=== PATIENT | female | born 1940 | race Caucasian/White ===

== ENCOUNTER 2021-07-25 21:16 | Outpatient (REF) | payer MEDICARE, SELFPAY ==
[2021-07-27 18:27] LABS: COVID-19 RT-PCR Result Not Detected ((See Note))
== END 2021-07-25 21:17 | disposition home or self-care (01) ==
LOC: LBN 21:16
PROVIDERS: PCP Family Medicine; Visit Provider Family Medicine
DX: Z20.822 Contact with and (suspected) exposure to COVID-19 (principal)
CPT/HCPCS: U0003

== ENCOUNTER 2021-08-02 01:42 | Outpatient (REF) | payer MEDICARE, SELFPAY ==
[2021-08-02 02:02] LABS: Bilirubin Negative (Negative); Blood Negative (Negative); Clarity Sl Cloudy (Clear); Glucose Negative (Negative); Ketones Negative (Negative); Leukocyte Esterase Negative (Negative); Nitrite Negative (Negative); Specific Gravity 1.025 (1.005-1.025); Urobilinogen 0.2 EU/dL (Up TO 0.2); pH 5.5 (5-8)
[2021-08-02 12:41] LABS: Abs Immature Grans 0.03 10^3/uL (0.0-0.06); Absolute Basophil Count 0.08 10^3/uL (0.0-0.2); Absolute Eosinophil Count 0.16 10^3/uL (0.0-0.7); Absolute Lymphocyte Count 1.58 10^3/uL (1.2-3.4); Absolute Monocyte Count 0.71 10^3/uL (0.1-0.8); Absolute Neutrophil Count 5.61 10^3/uL (1.2-6.7); HCT 37.7 % (36.0-46.0); HGB 11.4 g/dL (11.2-15.7); Immature Grans % 0.4; Lymphocytes % 19.3; MCH 27.1 pg (27.0-33.0); MCHC 30.2 % (32.0-36.0); MCV 89.8 fL (80-95); MPV 8.6 fL (8.0-11.0); Monocytes % 8.7; Neutrophils % 68.6; Nucleated RBC 0 %; Platelet Count 455 10^3/uL (130-400); RDW 15.2 % (11.7-14.6); RDW-SD 50.4 fL; WBC 8.17 10^3/uL (4.4-10.8)
[2021-08-02 13:53] LABS: Anion Gap 5.8 mmol/L (3-11); BUN 16 mg/dL (7-18); CO2 31.2 mmol/L (21.0-32.0); CREATININE 0.8 mg/dL (0.55-1.02); Calcium 8.9 mg/dL (8.5-10.1); Chloride 108 mmol/L (98-107); Glucose 113 mg/dL (74-106); Potassium 4.2 mmol/L (3.5-5.1); Sodium 145 mmol/L (136-145)
== END 2021-08-02 01:43 | disposition home or self-care (01) ==
LOC: LBN 01:42
PROVIDERS: PCP Family Medicine; Visit Provider Family Medicine
DX: N39.0 Urinary tract infection, site not specified; K21.9 Gastro-esophageal reflux disease without esophagitis; M16.0 Bilateral primary osteoarthritis of hip; M54.5 Low back pain
CPT/HCPCS: 80048; 81003; 85025; 87086

== ENCOUNTER 2021-09-07 16:14 | Outpatient (REF) | payer MEDICARE, SELFPAY ==
[2021-09-07 15:10] LABS: Abs Immature Grans 0.03 10^3/uL (0.0-0.06); Absolute Basophil Count 0.06 10^3/uL (0.0-0.2); Absolute Eosinophil Count 0.01 10^3/uL (0.0-0.7); Absolute Lymphocyte Count 1.32 10^3/uL (1.2-3.4); Absolute Monocyte Count 0.65 10^3/uL (0.1-0.8); Absolute Neutrophil Count 8.46 10^3/uL (1.2-6.7); Basophils % 0.6; Eosinophils % 0.1; HCT 39.4 % (36.0-46.0); HGB 12.2 g/dL (11.2-15.7); Immature Grans % 0.3; Lymphocytes % 12.5; MCH 26.6 pg (27.0-33.0); MCV 85.8 fL (80-95); MPV 9.4 fL (8.0-11.0); Monocytes % 6.2; Neutrophils % 80.3; Nucleated RBC 0 %; Platelet Count 446 10^3/uL (130-400); RBC 4.59 10^6/uL (3.93-5.22); RDW 15.2 % (11.7-14.6); RDW-SD 47.7 fL; WBC 10.53 10^3/uL (4.4-10.8)
[2021-09-07 15:43] LABS: ALT 16 U/L (14-59); AST 15 U/L (15-37); Albumin 3.4 g/dL (3.4-5.0); Alkaline Phosphatase 112 U/L (46-116); Anion Gap 10.8 mmol/L (3-11); BUN 11 mg/dL (7-18); Bilirubin, Total 0.5 mg/dL (0.2-1.0); CO2 27.2 mmol/L (21.0-32.0); CREATININE 0.7 mg/dL (0.55-1.02); Calcium 9.1 mg/dL (8.5-10.1); Chloride 104 mmol/L (98-107); FREE T4 1.43 ng/dL (0.76-1.46); Glucose 121 mg/dL (74-106); Potassium 3.8 mmol/L (3.5-5.1); Sodium 142 mmol/L (136-145); TSH (W/Ref FT4) 0.85 uIU/mL (0.36-3.74); Total Protein 6.3 g/dL (6.4-8.2)
[2021-09-07 15:44] LABS: Bilirubin Negative (Negative); Blood Negative (Negative); Clarity Sl Cloudy (Clear); Glucose Negative (Negative); Ketones 40 mg/dL (Negative); Leukocyte Esterase Negative (Negative); Nitrite Negative (Negative); Urobilinogen 0.2 EU/dL (Up TO 0.2)
== END 2021-09-07 16:15 | disposition home or self-care (01) ==
LOC: LBN 16:14
PROVIDERS: PCP Family Medicine; Visit Provider Nurse Practitioner Family
DX: M54.59 Other low back pain (principal); N39.0 Urinary tract infection, site not specified
CPT/HCPCS: 80053; 81003; 84439; 84443; 85025

== ENCOUNTER 2021-10-20 10:19 | Outpatient (REF) | payer MEDICARE, SELFPAY ==
[2021-10-20 12:33] LABS: Bilirubin Negative (Negative); Blood Negative (Negative); Clarity Clear (Clear); Glucose Negative (Negative); Ketones Negative (Negative); Leukocyte Esterase Negative (Negative); Nitrite Negative (Negative); Specific Gravity >= 1.030 (1.005-1.025); Urobilinogen 0.2 EU/dL (Up TO 0.2); pH 6.5 (5-8)
== END 2021-10-20 10:20 | disposition home or self-care (01) ==
LOC: LBN 10:19
PROVIDERS: PCP Family Medicine; Visit Provider Nurse Practitioner Family
DX: R35.0 Frequency of micturition (principal)
CPT/HCPCS: 81003

== ENCOUNTER 2021-11-07 16:18 | Outpatient (REF) | payer MEDICARE, SELFPAY ==
[2021-11-07 17:39] LABS: Abs Immature Grans 0.02 10^3/uL (0.0-0.06); Absolute Basophil Count 0.07 10^3/uL (0.0-0.2); Absolute Lymphocyte Count 1.97 10^3/uL (1.2-3.4); Absolute Monocyte Count 0.61 10^3/uL (0.1-0.8); Absolute Neutrophil Count 5.66 10^3/uL (1.2-6.7); Basophils % 0.8; Eosinophils % 2.3; HCT 38.8 % (36.0-46.0); HGB 11.9 g/dL (11.2-15.7); Immature Grans % 0.2; Lymphocytes % 23.1; MCH 25.6 pg (27.0-33.0); MCHC 30.7 % (32.0-36.0); MCV 83.6 fL (80-95); MPV 9.3 fL (8.0-11.0); Monocytes % 7.2; Neutrophils % 66.4; Nucleated RBC 0 %; Platelet Count 344 10^3/uL (130-400); RBC 4.64 10^6/uL (3.93-5.22); RDW 15.9 % (11.7-14.6); RDW-SD 48.5 fL; WBC 8.53 10^3/uL (4.4-10.8)
[2021-11-07 17:41] LABS: Anion Gap 7.9 mmol/L (3-11); BUN 15 mg/dL (7-18); CO2 28.1 mmol/L (21.0-32.0); CREATININE 0.8 mg/dL (0.55-1.02); Calcium 8.6 mg/dL (8.5-10.1); Chloride 104 mmol/L (98-107); Glucose 122 mg/dL (74-106); Potassium 3.9 mmol/L (3.5-5.1); Sodium 140 mmol/L (136-145)
== END 2021-11-07 16:19 | disposition home or self-care (01) ==
LOC: LBN 16:18
PROVIDERS: PCP Family Medicine; Visit Provider Family Medicine
DX: E87.8 Other disorders of electrolyte and fluid balance, not elsewhere classified (principal)
CPT/HCPCS: 80048; 85025

== ENCOUNTER 2022-01-24 16:27 | Outpatient (REF) | payer MEDICARE, SELFPAY ==
[2022-01-24 18:25] LABS: Bilirubin Negative (Negative); Blood Negative (Negative); Clarity Clear (Clear); Glucose Negative (Negative); Ketones Negative (Negative); Leukocyte Esterase Negative (Negative); Nitrite Negative (Negative); Urobilinogen 0.2 EU/dL (Up TO 0.2); pH 7.5 (5-8)
== END 2022-01-24 16:28 | disposition home or self-care (01) ==
LOC: LBN 16:27
PROVIDERS: PCP Family Medicine; Visit Provider Nurse Practitioner Family
DX: R35.0 Frequency of micturition (principal); R30.9 Painful micturition, unspecified; R39.15 Urgency of urination
CPT/HCPCS: 81003; 87086

== ENCOUNTER 2022-02-08 13:00 | Outpatient (REF) | payer MEDICARE, SELFPAY ==
[2022-02-09 00:52] LABS: Abs Immature Grans 0.02 10^3/uL (0.0-0.06); Absolute Basophil Count 0.06 10^3/uL (0.0-0.2); Absolute Eosinophil Count 0.22 10^3/uL (0.0-0.7); Absolute Lymphocyte Count 2.38 10^3/uL (1.2-3.4); Absolute Monocyte Count 0.65 10^3/uL (0.1-0.8); Absolute Neutrophil Count 4.48 10^3/uL (1.2-6.7); Basophils % 0.8; Eosinophils % 2.8; HGB 10.5 g/dL (11.2-15.7); Immature Grans % 0.3; Lymphocytes % 30.5; MCH 25.2 pg (27.0-33.0); MCV 84.1 fL (80-95); MPV 9.3 fL (8.0-11.0); Monocytes % 8.3; Neutrophils % 57.3; Nucleated RBC 0 %; Platelet Count 330 10^3/uL (130-400); RBC 4.16 10^6/uL (3.93-5.22); RDW 16.7 % (11.7-14.6); RDW-SD 51.6 fL; WBC 7.81 10^3/uL (4.4-10.8)
[2022-02-09 00:54] LABS: ALT 96 U/L (14-59); AST 52 U/L (15-37); Albumin 3.2 g/dL (3.4-5.0); Alkaline Phosphatase 219 U/L (46-116); Anion Gap 6.1 mmol/L (3-11); BUN 15 mg/dL (7-18); Bilirubin, Total 0.3 mg/dL (0.2-1.0); CO2 28.9 mmol/L (21.0-32.0); CREATININE 0.7 mg/dL (0.55-1.02); Calcium 8.5 mg/dL (8.5-10.1); Chloride 107 mmol/L (98-107); Glucose 104 mg/dL (74-106); Potassium 3.9 mmol/L (3.5-5.1); Sodium 142 mmol/L (136-145); Total Protein 6.1 g/dL (6.4-8.2)
[2022-02-09 01:10] LABS: Hemoglobin A1C 5.7 % (<5.7)
== END 2022-02-08 13:01 | disposition home or self-care (01) ==
LOC: LBN 13:00
PROVIDERS: PCP Family Medicine; Visit Provider Nurse Practitioner Family
DX: M16.0 Bilateral primary osteoarthritis of hip (principal); R35.0 Frequency of micturition
CPT/HCPCS: 80053; 83036; 85025

== ENCOUNTER 2022-03-08 18:45 | Outpatient (REF) | payer MEDICARE, BC, SELFPAY ==
[2022-03-08 13:44] LABS: Abs Immature Grans 0.01 10^3/uL (0.0-0.06); Absolute Basophil Count 0.05 10^3/uL (0.0-0.2); Absolute Eosinophil Count 0.22 10^3/uL (0.0-0.7); Absolute Lymphocyte Count 1.79 10^3/uL (1.2-3.4); Absolute Monocyte Count 0.52 10^3/uL (0.1-0.8); Absolute Neutrophil Count 4.95 10^3/uL (1.2-6.7); Basophils % 0.7; Eosinophils % 2.9; HCT 38.4 % (36.0-46.0); HGB 11.5 g/dL (11.2-15.7); Immature Grans % 0.1; Lymphocytes % 23.7; MCH 25.4 pg (27.0-33.0); MCHC 29.9 % (32.0-36.0); MCV 85 fL (80-95); MPV 9.1 fL (8.0-11.0); Monocytes % 6.9; Neutrophils % 65.7; Platelet Count 283 10^3/uL (130-400); RBC 4.53 10^6/uL (3.93-5.22); RDW-SD 49.5 fL; WBC 7.54 10^3/uL (4.4-10.8)
[2022-03-08 14:06] LABS: ALT 57 U/L (14-59); AST 37 U/L (15-37); Albumin 3.3 g/dL (3.4-5.0); Alkaline Phosphatase 166 U/L (46-116); BUN 19 mg/dL (7-18); Bilirubin, Total 0.3 mg/dL (0.2-1.0); CREATININE 0.7 mg/dL (0.55-1.02); Calcium 8.6 mg/dL (8.5-10.1); Chloride 104 mmol/L (98-107); Ferritin 12 ng/mL (8-252); Glucose 126 mg/dL (74-106); Potassium 4.3 mmol/L (3.5-5.1); Sodium 140 mmol/L (136-145); Total Protein 6.3 g/dL (6.4-8.2)
== END 2022-03-08 18:46 | disposition home or self-care (01) ==
LOC: LBN 18:45
PROVIDERS: PCP Family Medicine; Visit Provider Family Medicine
DX: D50.9 Iron deficiency anemia, unspecified (principal); R74.01 Elevation of levels of liver transaminase levels
CPT/HCPCS: 80053; 82728; 85025

== ENCOUNTER 2022-03-25 08:59 | Emergency (ER) | payer MEDICARE, BC, SELFPAY ==
--- NOTE | 2022-03-25 08:45 | RT.EKG_ITS ---
APPROVED REPORT Exam: Resting ECG Reason for Exam: dizziness Patient Location: E HR:63 bpm ECG Measurements Heart Rate 63 AXIS NJ 202 P 45 QRSd 89 QRS 28 QT 392 T 17 QTc 402 Conclusion Sinus rhythm...normal P axis, V-rate 60- 99. Sinus. Normal axis. No STEMI. I have reviewed and interpreted ECG and agree with software generated interpretation.
[2022-03-25 09:04] VITALS: BP 178/79; PULSE 64; RESP 18; TEMP 36.7; O2SAT 98
--- NOTE | 2022-03-25 09:13 | W.ED.GENAD ---
Discharge Plan Disposition Patient Disposition: HOME Condition: Improving Discharge Details Clinical Impression: Dizziness, Fall, Contusion of knee, left, Contusion of elbow, left, Closed head injury without loss of consciousness Primary Care Provider: Ella Pratt ED Provider: Sharon Lang Home Meds and New Rx's Prescriptions: Continued cholecalciferol (vitamin D3) 25 mcg (1,000 unit) Tablet 50 mcg PO QAM coenzyme Q10 100 mg Capsule 100 mg PO QAM diltiazem HCl 180 mg Capsule,Extended Release 24hr 360 mg PO QAM levothyroxine 137 mcg Tablet 137 mcg PO QAM losartan 100 mg Tablet 100 mg PO QAM ascorbic acid (vitamin C) [Vitamin C] 500 mg Tablet 500 mg PO DAILY zinc 50 mg Tablet 50 mg PO QAM [facility] Cream 1 applic topical BID buspirone 5 mg Tablet 5 mg PO BID Culturelle 10 billion cell Capsule 1 cap PO BID duloxetine [Cymbalta] 60 mg Capsule,Delayed Release(Dr/Ec) 60 mg PO BID omeprazole 40 mg Capsule,Delayed Release(Dr/Ec) 40 mg PO BID carboxymethylcellulose sodium 1 % Drops 2 drp ophthalmic (eye) TID gabapentin 300 mg Capsule 300 mg PO TID oxycodone 5 mg Tablet 7.5 mg PO Q6H acetaminophen 500 mg Tablet 1,000 mg PO Q8H fluticasone propionate 50 mcg/actuation [place],Suspension 1 spray INTRANASAL BID PRN Discharge Instructions Instructions: Head Injury (ED), Contusion in Adults (ED), Dizziness (ED) Additional Instructions: Your lab work, EKG and imaging is reassuring and shows no evidence of acute concerning or significant findings. Drink plenty of fluids and get plenty of rest. Continue your regular medications as directed. If you develop worsening elbow or knee pain, follow-up with orthopedics for reevaluation. Follow-up with your primary care doctor in 1 week. Return to the emergency department with any worsening or new concerning symptoms. Referrals: Shar Hernández MD [ [facility] STAFF PHYSICIAN] - Discharge Data Discharge Date/Time-TO BE ENTERED AT DEPARTURE: 03/25/22 12:03 Discharge Physician: Sharon Lang Medical Decision Making 81-year-old female presents for dizziness upon standing this morning with fall to the ground striking her left knee and elbow and head. Currently denies any dizziness. EKG on arrival notes a rate of 81, sinus, normal, no STEMI and nondiagnostic. She has tenderness to palpation of her left knee and pain with range of motion in her left elbow. She otherwise has no significant evidence of head trauma or focal deficits. Differential diagnosis includes orthostatic hypotension, dehydration, electrolyte abnormality. History and presentation does not appear consistent with ACS, CVA, subarachnoid hemorrhage, sepsis. Will place IV, bolus IV fluids, screening labs, urinalysis, CT head and cervical spine, left elbow and knee x-rays and give Tylenol and a dose of her regularly scheduled oxycodone. Labs and imaging reviewed and unremarkable. Normal white blood cell count. Normal electrolytes. Mild elevation in transaminases which has been seen previously. Troponin negative. Urinalysis negative. Imaging reviewed and negative for acute findings. Patient reassessed and she feels better and feels good to return to the rehab. Advised to follow up with the primary care doctor for re-evaluation. Usual and customary return precautions given prior to discharge. Medical Records Medical records reviewed: Yes I reviewed the patient's medical records. Imaging Data Radiologic Study: Radiologist's impression: XR Chest Exam date and time: 03/25/2022 10:49 AM Age: 81 years old Clinical indication: Other: Dizziness, R/O acute disease TECHNIQUE: Imaging protocol: XR of the chest. Views: 2 views. COMPARISON: CT HEAD CERVICAL SPINE WO 03/25/2022 10:27 AM FINDINGS: Lungs: Unremarkable. No consolidation. Pleural spaces: Unremarkable. No pleural effusion. No pneumothorax. Heart/Mediastinum: Unremarkable. No cardiomegaly. Bones/joints: Unremarkable. IMPRESSION: No acute cardiopulmonary pathology. XR Left Knee Exam date and time: 03/25/2022 10:44 AM Age: 81 years old Clinical indication: Injury or trauma; Blunt trauma; Knee; Left; Injury details: S/P fall, R/O acute FX TECHNIQUE: Imaging protocol: XR Left knee. Views: 3 views. COMPARISON: No relevant prior studies available. FINDINGS: Bones/joints: There is moderate medial and lateral compartmental joint space narrowing with subchondral sclerosis and osteophytic lipping. There is no acute fracture or dislocation. There is no significant suprapatellar effusion. Soft tissues: Normal. IMPRESSION: Moderate degenerative changes. XR Left Elbow Exam date and time: 03/25/2022 10:35 AM Age: 81 years old Clinical indication: Injury or trauma; Blunt trauma (contusions or hematomas); Left; Injury details: S/P fall onto elbow, R/O FX TECHNIQUE: Imaging protocol: XR Left elbow. Views: 3 or more views. COMPARISON: No relevant prior studies available. FINDINGS: Bones/joints: There is no fracture or dislocation. Osseous structures are normal. Joint spaces are maintained. There is no significant joint effusion. Soft tissues: Normal. IMPRESSION: No acute findings. CT Head Without Contrast Exam date and time: 03/25/2022 10:27 AM Age: 81 years old Clinical indication: Injury or trauma; Fall; Blunt trauma (contusions or hematomas); Consciousness not specified; Injury details: Hit top of head, R/O acute injury TECHNIQUE: Imaging protocol: Computed tomography of the head without contrast. COMPARISON: No relevant prior studies available. FINDINGS: Brain: There is symmetric enlargement of the cortical sulci and cerebral ventricles representing moderate cerebral atrophy. There are periventricular and deep white matter hypodensities representing chronic microvascular ischemic change. There is no evidence of acute infarction. There is no intracranial hemorrhage. Cerebral ventricles: No ventriculomegaly. Paranasal sinuses: Visualized sinuses are unremarkable. No fluid levels. Mastoid air cells: Visualized mastoid air cells are well aerated. Bones/joints: Unremarkable. No acute fracture. Soft tissues: Unremarkable. IMPRESSION: Chronic ischemic and involutional changes. No acute intracranial pathology identified. CT Cervical Spine Without Contrast Exam date and time: 03/25/2022 10:27 AM Age: 81 years old Clinical indication: Injury or trauma; Fall; Blunt trauma (contusions or hematomas); Consciousness not specified; Injury details: Hit top of head, R/O acute injury TECHNIQUE: Imaging protocol: Computed tomography images of the cervical spine without contrast. COMPARISON: No relevant prior studies available. FINDINGS: Bones/joints: There is multilevel degenerative change of the cervical spine with multilevel disc space narrowing, endplate spondylosis, and osteophyte formation. There is no acute fracture or dislocation. Vertebral alignment is normal. Discs/Spinal canal/Neural foramina: There is multilevel bilateral neural foraminal canal stenosis secondary to osteophyte. There is multilevel [id number] central spinal canal stenosis secondary to posterior osteophyte. Lungs: Lung apices are normal. Soft tissues: Unremarkable. IMPRESSION: Multilevel degenerative changes, as above.? No acute fracture or dislocation. Lab Data Lab results reviewed: Yes I reviewed the patient's lab results. Labs: Laboratory Tests Range/Units 03/25/22 03/25/22 03/25/22 09:25 09:45 09:45 WBC (4.4-10.8) 10^3/uL 7.48 RBC (3.93-5.22) 10^6/uL 4.78 Hgb (11.2-15.7) g/dL 11.8 Hct (36.0-46.0) % 40.0 MCV (80-95) fL 84 MCH (27.0-33.0) pg 24.7 L MCHC (32.0-36.0) % 29.5 L RDW (11.7-14.6) % 15.5 H Plt Count (130-400) 10^3/uL 318 MPV (8.0-11.0) fL 8.8 Immature Gran % 0.3 Neutrophils % 58.1 Lymphocytes % 29.8 Monocytes % 8.2 Eosinophils % 2.7 Basophils % 0.9 Nucleated RBC % (0.0-0.3) % 0.0 Absolute Neutrophils (1.2-6.7) 10^3/uL 4.35 Absolute Lymphocytes (1.2-3.4) 10^3/uL 2.23 Absolute Monocytes (0.1-0.8) 10^3/uL 0.61 Absolute Eosinophils (0.0-0.7) 10^3/uL 0.20 Absolute Basophils (0.0-0.2) 10^3/uL 0.07 Sodium (136-145) mmol/L 139 Potassium (3.5-5.1) mmol/L 4.3 Chloride (98-107) mmol/L 103 Carbon Dioxide (21.0-32.0) mmol/L 30.9 Anion Gap (3-11) mmol/L 5.1 BUN (7-18) mg/dL 21 H Creatinine (0.55-1.02) mg/dL 0.8 Estimated GFR/1.73 m2 (mL/min/1.73m2) >= 60.00 Glucose (74-106) mg/dL 102 Calcium (8.5-10.1) mg/dL 8.6 Magnesium (1.8-2.4) mg/dL 2.3 Total Bilirubin (0.2-1.0) mg/dL 0.3 AST (15-37) U/L 15 ALT (14-59) U/L 64 H Alkaline Phosphatase (46-116) U/L 160 H Troponin I (<or=60) ng/L < 50 Total Protein (6.4-8.2) g/dL 6.8 Albumin (3.4-5.0) g/dL 3.2 L Urine Color (Yellow) Yellow Urine Clarity (Clear) Clear Urine pH (5-8) 5.0 Ur Specific [place] (1.005-1.025) 1.025 Urine Protein (Negative) mg/dL Negative Urine Ketones (Negative) mg/dL Negative Urine Blood (Negative) Negative Urine Nitrite (Negative) Negative Urine Bilirubin (Negative) Negative Urine Urobilinogen (Up TO 0.2) EU/dL 0.2 Ur Leukocyte Esterase (Negative) Negative Urine Glucose (Negative) mg/dL Negative ECG Data Attestation: I personally reviewed and interpreted this ECG (s) as follows: Interpretation: Rate of 63, sinus, normal axis, no STEMI. HPI General Mode of arrival: EMS. Date/Time Provider Initiated Documentation: 03/25/22 09:33. Limitations to Documentation: no limitations. Information obtained by: patient. HPI Narrative: Patient is an 81-year-old female with a history of chronic low back pain secondary to spinal stenosis with admission to the rehab in July 2021 for treatment of her chronic pain presents from the rehab for an episode of dizziness with fall this morning. She states she thinks she got out of bed too quickly this morning and felt my equilibrium was off and felt lightheaded and fell to the ground hitting her left elbow and knee on the ground and left top of her head on her walker. She denies chest pain, shortness of breath, nausea or vomiting before or after the fall. She states the headache is mild at 3/10. She is having pain with range of motion at her left elbow and left knee. Patient denies any recent illness including fever, vomiting, diarrhea or urinary symptoms. She currently denies any dizziness. She states she takes oxycodone every 4-6 hours as needed for pain. She states she has not taken oxycodone this morning. Related Data Home Medications Medication Instructions Recorded Confirmed [facility] Cream 1 applic topical BID 03/25/22 03/25/22 Lactobacillus rhamnosus GG 10 1 cap PO BID 03/25/22 03/25/22 billion cell capsule (Culturelle) acetaminophen 500 mg tablet 1,000 mg PO Q8H 03/25/22 03/25/22 ascorbic acid (vitamin C) 500 mg 500 mg PO DAILY 03/25/22 03/25/22 tablet (Vitamin C) buspirone 5 mg tablet 5 mg PO BID 03/25/22 03/25/22 carboxymethylcellulose sodium 1 % 2 drp ophthalmic (eye) TID 03/25/22 03/25/22 eye drops cholecalciferol (vitamin D3) 25 50 mcg PO QAM 03/25/22 03/25/22 mcg (1,000 unit) tablet coenzyme Q10 100 mg capsule 100 mg PO QAM 03/25/22 03/25/22 diltiazem HCl 180 mg 360 mg PO QAM 03/25/22 03/25/22 capsule,extended release 24 hr duloxetine 60 mg capsule,delayed 60 mg PO BID 03/25/22 03/25/22 release (Cymbalta) fluticasone propionate 50 1 spray intranasal BID PRN 03/25/22 03/25/22 mcg/actuation nasal spray,suspension gabapentin 300 mg capsule 300 mg PO TID 03/25/22 03/25/22 levothyroxine 137 mcg tablet 137 mcg PO QAM 03/25/22 03/25/22 losartan 100 mg tablet 100 mg PO QAM 03/25/22 03/25/22 omeprazole 40 mg capsule,delayed 40 mg PO BID 03/25/22 03/25/22 release oxycodone 5 mg tablet 7.5 mg PO Q6H 03/25/22 03/25/22 zinc 50 mg tablet 50 mg PO QAM 03/25/22 03/25/22 Allergies Allergy/AdvReac Type Severity Reaction Status Date / Time capsaicin AdvReac Unknown Unverified 03/25/22 09:20 codeine AdvReac Unknown Unverified 03/25/22 09:16 erythromycin base AdvReac Unknown Unverified 03/25/22 09:17 gluten AdvReac Unknown Unverified 03/25/22 09:20 meperidine [From Demerol] AdvReac Unknown Unverified 03/25/22 09:18 morphine AdvReac Unknown Unverified 03/25/22 09:17 [email or web address] [From Nubain] AdvReac Unknown Unverified 03/25/22 09:18 neomycin AdvReac Unknown Unverified 03/25/22 09:17 Penicillins AdvReac Unknown Unverified 03/25/22 09:20 General Stated Complaint: Orthopedic JOHNIE: 3 Review of Systems All systems reviewed & are unremarkable except as noted in HPI and below Constitutional Constitutional: Denies chills, Denies excessive sweating, Denies fatigue, Denies fever(s), Denies weakness and Denies weight loss Eyes Eyes: Reports system reviewed and no additional complaints, except as documented and Denies blurry vision ENT Ears, Nose, Mouth, and Throat: Denies vertigo, Reports dizziness, Denies otalgia, Denies nasal congestion, Denies sore throat and Denies throat swelling Cardiovascular Cardiovascular: Denies chest pain, Denies syncope, Denies rapid heart rate and Denies dyspnea Respiratory Respiratory: Denies chest congestion, Denies cough, Denies pain on inspiration and Denies dyspnea Gastrointestinal Gastrointestinal: Denies abdominal pain, Denies diarrhea and Denies vomiting Genitourinary Genitourinary: Denies hematuria, Denies dysuria and Denies flank pain Musculoskeletal Musculoskeletal: Denies back pain and Denies joint swelling Comments: Left elbow pain, Left knee pain Integumentary/Breasts Skin/Breast: Denies lesions and Denies rash Neurologic Neurologic: Denies behavioral changes, Denies confusion, Denies vertigo, Reports dizziness, Denies syncope, Denies localized weakness and Denies weakness Psychiatric Psychiatric: Denies behavioral changes, Denies confusion and Denies depression Endocrine Endocrine: Denies excessive sweating and Denies fatigue Hematologic/Lymphatic Hematologic/Lymphatic: Denies easy bruising and Denies lymphadenopathy Allergic/Immunologic Allergic/Immunologic: Denies throat swelling PFSH All Active Problems (Updated 03/25/22 @ 11:11 by Sharon Lang DO) Dizziness (Acute) Fall (Acute) Contusion of knee, left (Acute) Contusion of elbow, left (Acute) Closed head injury without loss of consciousness (Acute) Medical History (Updated 03/25/22 @ 11:11 by Sharon Lang DO) Anxiety Chronic back pain Depression GERD (gastroesophageal reflux disease) HTN (hypertension) Hypothyroidism Migraine Spinal stenosis Surgical History (Updated 03/25/22 @ 09:38 by Sharon Lang DO) Hx of bilateral hip replacements Social History Smoking/Tobacco Use Status: Never Smoking risk assessment performed?: Yes Alcohol Intake: never Substance use type: does not use Do you feel safe at home: Yes Do you feel safe in your relationship?: Yes Exam Const General: cooperative and no acute distress Orientation: alert, awake and oriented x3 HENMT Head: normal to inspection Ears: hearing grossly normal bilaterally, external ears normal and TM's normal bilaterally General nose exam: external nose normal Face and sinus: normal facial exam Mouth: oral mucosae normal Teeth and gingiva: dentition normal Throat: posterior oropharynx normal Eyes General: appearance normal, both eyes and all related structures Eyelids: eyelids normal Pupils: PERRL EOM: EOM intact bilaterally Neck Neck: normal visual inspection Lymphatic: no lymphadenopathy noted Chest Chest: normal inspection of the chest Resp Effort & Inspection: normal respiratory effort and able to speak in complete sentences Auscultation: clear to auscultation bilaterally Cardio Rate: regular rate Rhythm: regular rhythm GI Inspection: normal to inspection Palpation: soft, not firm, no guarding, no hepatosplenomegaly, no masses and nontender Auscultation: normal bowel sounds Back/Spine/Pelvis Cervical Spine: No cervical spinal tenderness Thoracic/Lumbar Spine: thoracic and lumbar spine normal to inspection, No thoracic spinal tenderness and No lumbar spinal tenderness Skin General skin exam: no rashes or lesions noted Neuro General: patient alert and patient awake Cognition: normal cognition Speech: speech normal Gait: normal gait Motor: muscle tone normal throughout Sensory Exam: no sensory deficits noted Extrem Elbow/forearm/wrist images: 1. 1 x 1 cm area of faint ecchymosis and tenderness just superior to olecranon. No pain to epicondyles. No obvious deformity. Mild pain at elbow with flexion and extension. Knee images: 1. Tenderness to palpation to left lateral knee. There is no significant pain with range of motion. No obvious deformity, edema, erythema or ecchymosis. Other: No pain with range of motion of hips, shoulders, ankles and feet bilaterally. No pain with range of motion or evidence of trauma to right upper or lower extremity. Psych Appearance: grossly normal Mental Status: mental status grossly normal Speech and Movement: speech and movement normal Affect: normal affect Thought Process: normal Course Vital Signs Vital signs: Vital Signs Temperature 98.1 F 03/25/22 09:04 Pulse 64 03/25/22 09:04 Respiratory Rate 18 03/25/22 09:04 Blood Pressure 178/79 H 03/25/22 09:04 Pulse Oximetry 98 03/25/22 09:04 Temperature 98.1 F 03/25/22 09:04 Temperature Source Skin 03/25/22 09:04 Pulse 64 03/25/22 09:04 Respiratory Rate 18 03/25/22 09:04 Blood Pressure 178/79 H 03/25/22 09:04 Blood Pressure Position Supine 03/25/22 09:04 Pulse Oximetry 98 03/25/22 09:04 Oxygen Delivery Method Room Air 03/25/22 09:04 Oxygen Flow Rate 0 03/25/22 09:04 Pain Level 7 03/25/22 09:04
--- NOTE | 2022-03-25 09:30 | DI.RAD_ITS ---
Exam(s) XR CHEST 2V PA LATERAL EXAM: XR CHEST 2V PA LATERAL CLINICAL HISTORY: dizziness, r/o acute disease. TECHNIQUE: 2D digital imaging was performed. COMPARISON: No exams were available for comparison FINDINGS: 2 views: Heart size is normal. The mediastinum is not widened. Lungs are clear. No infiltrates nor pleural effusions. IMPRESSION: No acute pulmonary findings. DATA REPOSITORY: RADIATION DOSE DELIVERED:
--- NOTE | 2022-03-25 09:30 | DI.RAD_ITS ---
Exam(s) XR KNEE LT 3V AP,LAT,MADELYN EXAM: XR KNEE LT 3V AP,LAT,MADELYN CLINICAL HISTORY: s/p fall, r/o acute fx. TECHNIQUE: 2D digital imaging was performed. COMPARISON: No exams were available for comparison FINDINGS: 3 views There is no evidence of fracture. There is a small joint effusion noted. There is [id number] narrowing of the lateral compartment with marginal osteophytes. Also significa nt degenerative changes in the patellofemoral compartment; less so in the medial compartment. Bone d ensity is age-appropriate. No osseous lesions. IMPRESSION: Degenerative changes as described above. Small joint effusion. No obvious fractures identified. DATA REPOSITORY: RADIATION DOSE DELIVERED:
--- NOTE | 2022-03-25 09:30 | DI.CT_ITS ---
Exam(s) CT HEAD CERVICAL SPINE WO EXAM: CT HEAD CERVICAL SPINE WO CLINICAL HISTORY: hit top of head, r/o acute injury. TECHNIQUE: Imaging Protocol: Axial computed tomography images with coronal and sagittal reformatted images were created and reviewed COMPARISON: No exams were available for comparison FINDINGS: BRAIN: There are no skull fractures nor fluid in the visualized paranasal sinuses. There is no evidence of intracranial hemorrhage, mass effect, or shift of midline structures. There are no extra-axial fluid collections. The ventricles are not enlarged or shifted and there is no blo od within the ventricular system nor within the basal cisterns. Mild bilateral periventricular hypodensity consistent with chronic small vessel ischemic changes. Al so similar findings in the external capsules bilaterally. CERVICAL SPINE: There is no evidence of fracture nor listhesis. No significant prevertebral soft tissue swelling. There is advanced disc space narrowing at each level in the cervical spine with the exception of pres ervation of disc height at C2-3 level. There is mild facet arthropathy. No facet malalignment. No significant osseous lesions evident. IMPRESSION: No acute intracranial findings on this noninfused CT scan of the brain. No evidence of cervical spine fracture, malalignment, nor acute compromise of the cervical spinal can al. Multilevel chronic disc space narrowing. RADIATION DOSE DELIVERED: 1,364.76mGy.cm Total DLP DATA REPOSITORY: All CT scans at this facility are submitted to the National Radiology Data Registry (NRDR) Dose Index Registry (DIR) with the [employer] ([employer]). RADIATION OPTIMIZATION: All CT scans at this facility use at least one of these dose optimization te chniques: automated exposure control; mA and/or kV adjustment per patient size (includes targeted exa ms where dose is matched to clinical indication); or iterative reconstruction.
--- NOTE | 2022-03-25 09:30 | DI.RAD_ITS ---
Exam(s) XR ELBOW LT COMPLETE EXAM: XR ELBOW LT COMPLETE CLINICAL HISTORY: s/p fall onto elbow, r/o fx. TECHNIQUE: 2D digital imaging was performed. COMPARISON: No exams were available for comparison FINDINGS: 3 views There is no evidence of fracture nor obvious joint effusion. On 1 image there is a linear lucency in the radial head but this appears to continue beyond the bone and is probably artifact. There is no obvious joint effusion-hemarthrosis. Some findings at the lateral epicondyle are noted which may ref lect epicondylitis. IMPRESSION: DATA REPOSITORY: RADIATION DOSE DELIVERED:
[2022-03-25 09:32] LABS: Bilirubin Negative (Negative); Blood Negative (Negative); Clarity Clear (Clear); Glucose Negative (Negative); Ketones Negative (Negative); Leukocyte Esterase Negative (Negative); Nitrite Negative (Negative); Specific Gravity 1.025 (1.005-1.025); Urobilinogen 0.2 EU/dL (Up TO 0.2)
[2022-03-25] MEDS: Normal Saline 500 ML IV (09:51)
[2022-03-25] MEDS: oxyCODONE 5 MG TAB PO (09:59)
[2022-03-25] MEDS: Acetaminophen 325 MG TAB 650 MG PO (09:59)
[2022-03-25 10:14] LABS: Abs Immature Grans 0.02 10^3/uL (0.0-0.06); Absolute Basophil Count 0.07 10^3/uL (0.0-0.2); Absolute Lymphocyte Count 2.23 10^3/uL (1.2-3.4); Absolute Monocyte Count 0.61 10^3/uL (0.1-0.8); Absolute Neutrophil Count 4.35 10^3/uL (1.2-6.7); Basophils % 0.9; Eosinophils % 2.7; HGB 11.8 g/dL (11.2-15.7); Immature Grans % 0.3; Lymphocytes % 29.8; MCH 24.7 pg (27.0-33.0); MCHC 29.5 % (32.0-36.0); MCV 84 fL (80-95); MPV 8.8 fL (8.0-11.0); Monocytes % 8.2; Neutrophils % 58.1; Platelet Count 318 10^3/uL (130-400); RBC 4.78 10^6/uL (3.93-5.22); RDW 15.5 % (11.7-14.6); RDW-SD 47.7 fL; WBC 7.48 10^3/uL (4.4-10.8)
[2022-03-25 10:16] LABS: ALT 64 U/L (14-59); AST 15 U/L (15-37); Albumin 3.2 g/dL (3.4-5.0); Alkaline Phosphatase 160 U/L (46-116); Anion Gap 5.1 mmol/L (3-11); BUN 21 mg/dL (7-18); Bilirubin, Total 0.3 mg/dL (0.2-1.0); CO2 30.9 mmol/L (21.0-32.0); CREATININE 0.8 mg/dL (0.55-1.02); Calcium 8.6 mg/dL (8.5-10.1); Chloride 103 mmol/L (98-107); Glucose 102 mg/dL (74-106); Magnesium 2.3 mg/dL (1.8-2.4); Potassium 4.3 mmol/L (3.5-5.1); Sodium 139 mmol/L (136-145); Total Protein 6.8 g/dL (6.4-8.2); Troponin I < 50 ng/L (<or=60)
--- NOTE | 2022-03-25 10:53 | DI.VRAD_ITS ---
PROCEDURE INFORMATION: Exam: CT Head Without Contrast Exam date and time: 03/25/2022 10:27 AM Age: 81 years old Clinical indication: Injury or trauma; Fall; Blunt trauma (contusions or hematomas); Consciousness not specified; Injury details: Hit top of head, R/O acute injury TECHNIQUE: Imaging protocol: Computed tomography of the head without contrast. COMPARISON: No relevant prior studies available. FINDINGS: Brain: There is symmetric enlargement of the cortical sulci and cerebral ventricles representing moderate cerebral atrophy. There are periventricular and deep white matter hypodensities representing chronic microvascular ischemic change. There is no evidence of acute infarction. There is no intracranial hemorrhage. Cerebral ventricles: No ventriculomegaly. Paranasal sinuses: Visualized sinuses are unremarkable. No fluid levels. Mastoid air cells: Visualized mastoid air cells are well aerated. Bones/joints: Unremarkable. No acute fracture. Soft tissues: Unremarkable. IMPRESSION: Chronic ischemic and involutional changes. No acute intracranial pathology identified. PROCEDURE INFORMATION: Exam: CT Cervical Spine Without Contrast Exam date and time: 03/25/2022 10:27 AM Age: 81 years old Clinical indication: Injury or trauma; Fall; Blunt trauma (contusions or hematomas); Consciousness not specified; Injury details: Hit top of head, R/O acute injury TECHNIQUE: Imaging protocol: Computed tomography images of the cervical spine without contrast. COMPARISON: No relevant prior studies available. FINDINGS: Bones/joints: There is multilevel degenerative change of the cervical spine with multilevel disc space narrowing, endplate spondylosis, and osteophyte formation. There is no acute fracture or dislocation. Vertebral alignment is normal. Discs/Spinal canal/Neural foramina: There is multilevel bilateral neural foraminal canal stenosis secondary to osteophyte. There is multilevel [id number] central spinal canal stenosis secondary to posterior osteophyte. Lungs: Lung apices are normal. Soft tissues: Unremarkable. IMPRESSION: Multilevel degenerative changes, as above. No acute fracture or dislocation. Dictated and Authenticated by: Riccardo Woodard MD. Ordering:SUZETTE Herrera MD
--- NOTE | 2022-03-25 11:00 | DI.VRAD_ITS ---
PROCEDURE INFORMATION: Exam: XR Left Elbow Exam date and time: 03/25/2022 10:35 AM Age: 81 years old Clinical indication: Injury or trauma; Blunt trauma (contusions or hematomas); Left; Injury details: S/P fall onto elbow, R/O FX TECHNIQUE: Imaging protocol: XR Left elbow. Views: 3 or more views. COMPARISON: No relevant prior studies available. FINDINGS: Bones/joints: There is no fracture or dislocation. Osseous structures are normal. Joint spaces are maintained. There is no significant joint effusion. Soft tissues: Normal. IMPRESSION: No acute findings. Dictated and Authenticated by: Riccardo Woodard MD. Ordering:SUZETTE Herrera MD
--- NOTE | 2022-03-25 11:01 | DI.VRAD_ITS ---
PROCEDURE INFORMATION: Exam: XR Chest Exam date and time: 03/25/2022 10:49 AM Age: 81 years old Clinical indication: Other: Dizziness, R/O acute disease TECHNIQUE: Imaging protocol: XR of the chest. Views: 2 views. COMPARISON: CT HEAD CERVICAL SPINE WO 03/25/2022 10:27 AM FINDINGS: Lungs: Unremarkable. No consolidation. Pleural spaces: Unremarkable. No pleural effusion. No pneumothorax. Heart/Mediastinum: Unremarkable. No cardiomegaly. Bones/joints: Unremarkable. IMPRESSION: No acute cardiopulmonary pathology. Dictated and Authenticated by: Riccardo Woodard MD. Ordering:SUZETTE Herrera MD
--- NOTE | 2022-03-25 11:01 | DI.VRAD_ITS ---
PROCEDURE INFORMATION: Exam: XR Left Knee Exam date and time: 03/25/2022 10:44 AM Age: 81 years old Clinical indication: Injury or trauma; Blunt trauma; Knee; Left; Injury details: S/P fall, R/O acute FX TECHNIQUE: Imaging protocol: XR Left knee. Views: 3 views. COMPARISON: No relevant prior studies available. FINDINGS: Bones/joints: There is moderate medial and lateral compartmental joint space narrowing with subchondral sclerosis and osteophytic lipping. There is no acute fracture or dislocation. There is no significant suprapatellar effusion. Soft tissues: Normal. IMPRESSION: Moderate degenerative changes. Dictated and Authenticated by: Riccardo Woodard MD. Ordering:SUZETTE Herrera MD
[2022-03-25 11:29] VITALS: BP 132/68; PULSE 77; RESP 16; O2SAT 97
== END 2022-03-25 12:03 | disposition home or self-care (01) ==
PROVIDERS: Emergency Provider Physician Assistant; PCP Family Medicine
DX: R42 Dizziness and giddiness (principal); S09.8XXA Other specified injuries of head, initial encounter; S80.02XA Contusion of left knee, initial encounter; S50.02XA Contusion of left elbow, initial encounter; W18.39XA Other fall on same level, initial encounter
CPT/HCPCS: 36415; 73562; 80053; 93005; 96360; 96361; 99285; 70450; 71046; 72125; 73080; 81003; 83735; 84484; 85025; 93010; 99284

== ENCOUNTER → 2022-11-06 12:32 | Outpatient (CLI) | payer MEDICARE, BC, SELFPAY ==
--- NOTE | 2022-11-06 | DI.RAD_ITS ---
Exam(s) XR CHEST 2V PA LATERAL EXAM: XR CHEST 2V PA LATERAL CLINICAL HISTORY: COUGH, CONGESTION. TECHNIQUE: 2D digital imaging was performed. COMPARISON: CR,XR XR CHEST 2V PA LATERAL from 03/25/2022 FINDINGS: 2 views: Heart size is normal. The mediastinum is not widened. There is subsegmental platelike atelectasis in the lateral left lung base. No other pulmonary findin gs. No pleural. IMPRESSION: Platelike atelectasis in the lateral left lung base. No other pulmonary findings.No pleural effusion s. DATA REPOSITORY: RADIATION DOSE DELIVERED:
== END ==
PROVIDERS: PCP Family Medicine; Visit Provider Nurse Practitioner Family
DX: J98.11 Atelectasis (principal); R05.9 Cough, unspecified
CPT/HCPCS: 71046

== ENCOUNTER 2022-11-06 12:36 | Outpatient (REF) | payer MEDICARE, BC, SELFPAY ==
--- OUTSIDE RECORDS SUMMARY | 2022-11-06 12:38 | XMS_ITS ---
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 Problem Anxiety F41.9 Active 94839433 Problem Epistaxis 784.7 Active 250787041 Problem Encounter for Z46.89 Active pessary maintenance Problem Diarrhea 787.91 Active 52410686 Problem Spinal M46.07 Active 5410635967 52618 enthesopathy of lumbosacral region Problem Bilateral G57.03 Active 419387420 piriformis syndrome Problem Cystocele, midline N81.11 Active 4 73933678 Problem Chronic pain G89.4 Active 0179251 06 syndrome ALLERGIES Substance Reaction Event Type Date Status neomycin Unknown Non Drug Allergy Apr, Active penicillin Unknown Non Drug Allergy Apr, Active demerol Unknown Non Drug Allergy Apr, Active morphine Unknown Non Drug Allergy Apr, Active codeine Unknown Non Drug Allergy Apr, Active erythromycin Unknown Non Drug Allergy Apr, Active nubain Unknown Non Drug Allergy Apr, Active ENCOUNTERS Encounter Location Date Diagnosis [address] Apr, [address] [place], [place] [id number] [address] Apr, Cystocele , midline N81.[address] and Chronic pain syndrome [place], [place] G89.[id number] Jan, [facility] [address] [place] [id number] [facility] Dec, Chronic pain s yndrome [place], [place] G89.4 [id number] [facility] [address] [place] [address] Dec, [address] [place], [place] [id number] [facility] [address] [place] [address] 08 Jul, [address] [place], [place] [id number] [facility] [address] [place] [address] Jun, Anx iety F41.[address] [place] pain syndrome G89.[id number] Oct, [facility] [address] [place] [id number] [address] Oct, [facility] [address] [place] [id number] [address] Oct, Spinal entheso homar of [facility] [address] lumbos acral region M46.07 [place], [place] [id number] [address] Sep, Lumbar ra diculopathy, [facility] [address] right M54.16 [place] [id number] [address] Sep, [facility] [address] [place] [id number] [address] Sep, Lumbar radicul opathy, [facility] [address] right M54.16 [place] [id number] [address] Aug, Ischial bursit is of right [facility] [address] side M 70.71 and Ischial [place] bursitis of left side [id number] M70.[address] Aug, [address] [place] [id number] [address] Aug, Lumbar radicul opathy, [facility] [address] right M54.16 [place] [id number] [address] Aug, [facility] [address] [place] [id number] [address] Aug, [facility] [address] [place] [id number] [address] 09 Aug, [address] [facility] [address] [place] [id number] [address] Jul, [facility] [address] [place] [id number] [address] 15 Jul, [address] [place] [id number] [address] Jun, [facility] [address] [place] [id number] [address] 14 Jun, 2020 Lumbar radicul opathy, [facility] [address] right M54.16 [place] [id number] [address] 07 Jun, [address] [place] [id number] [address] Jun, Ischial bursit is of left [facility] [address] side M 70.72 ; Ischial [place] bursitis of righ t side [id number] M70.71 and Spina l enthesopathy of lumbosacral cheryle on M46.[address] May, [facility] [address] [place] [id number] [address] May, Lumbar radicul opathy, [facility] [address] right M54.16 ; Spinal [place] enthesopathy of [id number] lumbosacral cheryle on M46.07 and Spondylosis of lumbar region without m yelopathy or radiculopathy M47.[address] May, [facility] [address] [place] [id number] [address] Apr, [facility] [address] [place], [place] [id number] [facility] [address] Apr, Spinal enthe sopathy of [address] [place] lumbosacral reg ion M46.[id number] Apr, [facility] [address] [place] [id number] [address] March, Lumbar radicul opathy, [facility] [address] right M54.16 ; [place] Spondylosis of l umbar [id number] region without m yelopathy or radiculopathy M47.816 and Spinal enthe sopathy of lumbosacral r egion M46.[address] Feb, [facility] [address] [place] [id number] [address] Jan, Lumbar radicul opathy, [facility] [address] right M54.16 ; [place] Spondylosis of l umbar [id number] region without m yelopathy or radiculopathy M47.816 and Spinal enthe sopathy of lumbosacral r egion M46.[address] Jan, [facility] [address] [place] [id number] [address] Dec, [facility] [address] [place] [id number] [address] Dec, [address] [place] [id number] Dec, [address] [place] [id number] Dec, [facility] [address] [place] [id number] [address] Nov, [address] [place] [id number] Nov, [address] [place] [id number] [facility] [address] [place] [address] Nov, [address] [place] [id number] [address] Nov, [address] [place] [id number] [facility] [address] [place] [address] Nov, Road [place] [id number] [address] Nov, Lumbar radicul opathy, [facility] [address] right M54.16 [place] [id number] [address] Nov, Cystocele , midline N81.11 [place] [id number] [address] Nov, [address] [place] [id number] [address] Oct, [facility] [address] [place] [id number] [address] Oct, Bilateral piri formis [facility] [address] syndro me G57.03 [place] [id number] [facility] [address] [facility] Oct, Road [place] [id number] [address] Oct, Ischial bursit is, [facility] [address] unspec ified laterality [place] M70.[id number] Oct, [facility] [address] [place] [id number] [address] Sep, Sacroiliac bull nt [facility] [address] dysfun ction of both sides [place], [place] M53.[id number] Sep, Low back pain M54.[address] [facility] [address] Sacroi liac joint [place] dysfunction of b oth sides [id number] M53.[address] Aug, Low back pain M54.[address] [facility] [address] Radicu lopathy, lumbar [place] region M54.[id number] Aug, Sacroiliac bull nt [facility] [address] dysfun ction of both sides [place] M53.[id number] Aug, Sacroiliac bull nt [facility] [address] dysfun ction of both sides [place] M53.[id number] Jul, Spinal entheso homar of [facility] [address] lumbos acral region M46.07 [place] [id number] [address] Jul, [facility] [address] [place] [id number] [address] Jul, Bilateral low back pain [facility] [address] withou t sciatica, [place] unspecified 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 [id number] M54.5 [facility] [address] [place] [address] Jul, [address] [place] [id number] [address] Jul, Spondylosis of lumbar [facility] [address] region without myelopathy [place] or radiculopathy M47.[id number] Jun, Spondylosis of lumbar [facility] [address] region without myelopathy [place] or radiculopathy M47.[id number] Jun, Spondylosis of lumbar [facility] [address] region without myelopathy [place] or radiculopathy M47.[id number] Jun, Spondylosis of lumbar [facility] [address] region without myelopathy [place] or radiculopathy M47.[id number] May, Spondylosis of lumbar [facility] [address] region without myelopathy [place] or radiculopathy M47.816 [id number] and Primary osteoarthritis o f both knees M17.[address] May, Spondylosis of lumbar [facility] [address] region without myelopathy [place] or radiculopathy M47.816 [id number] and Primary osteoarthritis o f both knees M17.0 [facility] [address] [place] [address] May, Spondylosis o f lumbar Road [place] region withou t myelopathy [id number] or radiculopathy M47.816 and Primary osteoarthritis o f both knees M17.0 [facility] [address] [place] [address] Jun, Vaginal b leeding N93.[address] [place] [id number] [address] Dec, Otolaryngology [address] [place] [id number] [address] Dec, Epistaxis 784.7 ; Otolaryngology [address] [facility] 787 .91 ; [place] [id number] Bloating 787.3 a nd Rash 782.1 [facility] [address] Jan, Road [address] [place], [place] [id number] IMMUNIZATIONS No Known Immunizations SOCIAL HISTORY Qualifiers Date Never Smoker REASON FOR REFERRAL FUNCTIONAL STATUS PLAN OF CARE Activity Details Follow Up prn Reason: Future/Pending Procedure LUMBAR MEDIAL BRANCH BLOCK 2 [id number] Future/Pending Procedure BILATERAL LUMBAR L3,L4 AND L 5 MEDIAL BRANCH BLOCK [id number] VITAL SIGNS Height 61.5 in 2022-04-11 Height 61.5 in 2021-06-28 Height 61.5 in 2019-11-16 Height 61.5 in 2019-10-26 Height 61.5 in 2019-10-13 Height 61.5 in 2019-08-31 Height 61.5 in 2019-08-10 Height 61.5 in 2019-08-03 Height 61.5 in 2019-07-22 Height 61.5 in 2019-07-09 Height 61.5 in 2019-06-16 Height 61.5 in 2019-05-27 Height 61.5 in 2019-05-19 Height 61.5 in 2019-05-18 Height 61.5 in 2017-06-28 Height 61.5 in 2011-12-24 Weight 165 lbs 2019-05-27 Weight 165 lbs 2019-05-18 Weight 168 lbs 2017-06-28 Weight 162 lbs 2011-12-24 Heart Rate 102 /min 2021-06-28 Heart Rate 100 /min 2019-11-16 Heart Rate 98 /min 2019-10-26 Heart Rate 86 /min 2019-10-13 Heart Rate 82 /min 2019-08-31 Heart Rate 80 /min 2019-08-10 Heart Rate 91 /min 2019-07-22 Heart Rate 87 /min 2019-07-09 Heart Rate 88 /min 2019-06-16 Heart Rate 87 /min 2019-05-27 Heart Rate 92 /min 2019-05-19 Heart Rate 90 /min 2019-05-18 Heart Rate 76 /min 2011-12-24 Oximetry 98 2021-06-28 Oximetry 98 2019-11-16 Oximetry 97 2019-10-26 Oximetry 97 2019-10-13 Oximetry 97 2019-08-31 Oximetry 97 2019-08-10 Oximetry 99 2019-08-03 Oximetry 94 2019-07-22 Oximetry 98 2019-07-09 Oximetry 92 2019-06-16 Oximetry 97 2019-05-27 Oximetry 95 2019-05-19 Oximetry 96 2019-05-18 Respiratory Rate 16 /min 2019-11-16 Respiratory Rate 18 /min 2019-08-31 Respiratory Rate 18 /min 2019-08-03 BMI 30.67 kg/m2 2019-05-27 BMI 30.67 kg/m2 2019-05-18 BMI 31.23 kg/m2 2017-06-28 BMI 30.11 kg/m2 2011-12-24 Blood pressure systolic 168 mm Hg 2022-04-11 Blood pressure diastolic 80 mm Hg 2022-04-11 MEDICATIONS Medication Instructions Dosage Frequency Start End Duration Statu s Date Date Omeprazole 40 MG Orally Once a 1 capsule 24h Active day Losartan Potassium Orally Once a 1 tablet 24h 30 day (s) Active 100 MG day Ibuprofen 600 MG Orally daily 1 tablet N ot-Taki PRN ng Fleet Enema - as directed Active Vitamin B Complex as directed Un known Vitamin C 500 MG as directed Act deborah hydroCHLOROthiazide Orally Once a 1 tablet 24h 30 da y(s) Unknown 25 MG day Zinc 50 MG Orally Once a 1 tablet 24h 30 day(s) Acti ve day Culturelle - Orally twice a as directed 12h Active day Levothyroxine Sodium Orally Once a 1 tablet on 24h Not-Taki 125 MCG day an empty ng stomach in the morning Vitamin E 400 UNIT Orally Once a 1 capsule 24h Not-Taki day ng Artificial Tears 1 % as directed Active Magnesium Hydroxide Orally as 5 ml at Ac tive 400 MG/5ML directed as least 4 needed for hours constipation between doses as needed Fish Oil 1200 MG Orally Once a 1 capsule 24h Unknown day Fluticasone Inhalation 1 puff 12h Active Propionate (Inhal) 50 Twice a day MCG/BLIST Anusol-HC 2.5 % Externally 1 12h Activ e Twice a day application Vitamin B 12 100 MCG Not -Taki ng CoQ-10 100 mg Orally Once a 1 capsule 24h Ac tive day with a meal Naprosyn 500 mg Orally bid prn 1 tablet Unknown Synthroid 137 MCG Orally Once a 1 tablet 24h Active day every morning on an empty stomach Vitamin D-3 1000 UNIT Orally Once a 2 capsules 24h Active day HYDROcodone-Acetamino Orally takes 1 1 tablet as Unknown phen 5-300 MG in the AM PRN needed Imodium A-D 2 MG Orally Four 1 tablet as 6h Active times a day needed busPIRone HCl 10 MG Orally at 2 tablets Active bedtime Fluticasone Nasally Once a 1 puff in 24h 30 day(s) A ctive Propionate 50 MCG/ACT day each nostril Magnesium Citrate 125 Orally daily 1 cap(s) 24h Not-Taki MG ng busPIRone HCl 10 MG Orally twice a 1 tablet 12h Active day Calcium & Magnesium p.o. daily 2 tabs 24h U nknown Carbonates Tylenol Extra Orally every 6 1 tablet as 6h Active Strength 500 MG hrs needed Zantac 150 MG Orally daily 2 tabs in 24h Not -Taki the AM, 1 ng tablet at bedtime Lidocaine 4 % as directed Active Potassium Chloride Orally Once a 1 tablet 24h Unknown Claudine ER 20 MEQ day with food Dulcolax 10 MG Rectal Once a 1 24h 30 day(s) A ctive day suppository as needed Dilt-XR 180 MG Orally Once a 2 capsules 24h Active day on an empty stomach in the morning DULoxetine HCl 60 MG Orally Once a 1 capsule 24h Active day Gabapentin 300 MG Orally three 1 capsule 8h Active times a day PROCEDURES Procedure Date Ordered Result Body Site SNF SUB LEVEL 2 Nov 12, 2019 INJ FORAMEN EPIDURAL L/S Nov 16, 2019 DRAIN/INJ JOINT/BURSA W/US May 19, 2019 PESSARY FITTING April 11, 2022 DESTROY L/S FACET JNT ADDL Jul 22, 2019 PT VISIT DOC USING CCHIT CER Dec 24, 2011 INJ PARAVERT F JNT L/S 2 LEV May 19, 2019 DUSTIN DRAIN/INJ JOINT/BURSA W/O US Oct 13, 2019 DESTROY L/S FACET JNT ADDL Jul 09, 2019 DESTROY LUMB/SAC FACET JNT Jul 09, 2019 OR - INJECT SACROILIAC JOINT Aug 31, 2019 OR - INJECT SACROILIAC JOINT Sep 21, 2019 OR - INJECT SACROILIAC JOINT Aug 31, 2019 DESTROY LUMB/SAC FACET JNT Jul 22, 2019 PESSARY NON RUBBER ANY TYPE April 11, 2022 INJ PARAVERT F JNT L/S 1 LEV May 19, 2019 FLUOROGUIDE FOR SPINE INJECT Oct 13, 2019 RESULTS Name Result Date Reference Range PLATELET COUNT 2021-07-21 PROTHROMBIN TIME 2021-07-21 PROTIME 10.2 9.1-10.6 INR 1.0 0.9-1.1 INR_TEXT THERAPEUTIC INR RANGES FOR WARFARIN Uncomplicated venous thromboembolic disease 2 - 3 Lupus Anticoagulant and recurrent thrombosis 3 - 3.5 Mechanical prosthetic valve or recurrent thrombosis 2.5 - 3.5 PLATELET COUNT 2021-07-20 PROTHROMBIN TIME 2021-07-20 PROTIME 9.8 9.1-10.6 INR 1.0 0.9-1.1 INR_TEXT THERAPEUTIC INR RANGES FOR WARFARIN Uncomplicated venous thromboembolic disease 2 - 3 Lupus Anticoagulant and recurrent thrombosis 3 - 3.5 Mechanical prosthetic valve or recurrent thrombosis 2.5 - 3.5 PT/APTT PANEL 2021-07-19 PROTIME 9.6 9.1-10.6 INR 1.0 0.9-1.1 INR_TEXT THERAPEUTIC INR RANGES FOR WARFARIN Uncomplicated venous thromboembolic disease 2 - 3 Lupus Anticoagulant and recurrent thrombosis 3 - 3.5 Mechanical prosthetic valve or recurrent thrombosis 2.5 - 3.5 APTT 24.2 21.3-28.4 MR SPINE LUMBAR W/WO CONTRAST 2021-07-18 CULTURE BLOOD 2021-07-17 CBC, WITH AUTO DIFF 2021-07-17 WBC 12.9 4.8-10.8 RBC 4.80 4.20-5.40 HGB 13.7 12.0-16.0 HCT 44.0 37.0-47.0 MCV 91.7 81.0-99.0 MCH 28.5 27.0-31.0 MCHC 31.1 32.0-37.0 RDW-CV 15.8 11.5-14.5 PLT 343 130-400 MPV 8.8 7.4-10.4 NE% 83.8 42.2-75.2 LY% 8.9 20.5-51.1 MO% 5.4 1.7-9.3 EO% 0.7 0.9-2.9 BA% 0.5 0.0-0.8 NE# 10.8 1.4-6.5 LY# 1.1 1.2-3.4 MO# 0.7 0.1-0.6 EO# 0.1 0.0-0.2 BA# 0.1 0.0-0.2 SEDIMENTATION RATE 2021-07-17 ESR 61 <=30 COMPREHENSIVE METABOLIC 2021-07-17 PROFILE SODIUM 139 134-143 POTASSIUM 3.2 3.5-5.1 CHLORIDE 98 98-111 CO2 27 22-32 CALCIUM 8.9 8.9-10.3 BUN 19 8-26 CREATININE 0.70 0.44-1.00 TOTAL BILIRUBIN 0.5 0.3-1.2 TOTAL PROTEIN 7.4 6.5-8.1 ALBUMIN 3.7 3.5-5.0 ALKALINE PHOS 56 32-92 AST 23 15-41 ALT 19 14-54 A/GAP 14.0 3.0-12.0 B/CR 27.1 8.0-20.0 OSMOLARITY 283 275-295 GLOBULIN 3.7 2.3-3.5 A/G 1.0 1.0-2.5 C-REACTIVE PROTEIN (CRP) 2021-07-17 CRP 79.7 <=10.0 CULTURE BLOOD 2021-07-17 URINALYSIS DIP w/REFLEX MICRO 2021-07-17 COLOR Yellow YELLOW CLARITY Clear CLEAR SPECIFIC GRAVITY 1.020 1.000-1.030 pH 7.0 5.0-8.0 PROTEIN Trace NEGATIVE GLUCOSE Negative NEGATIVE KETONES Trace NEGATIVE UROBILINOGEN 0.2 E.U./dL 0.2 E.U./DL BILIRUBIN Negative NEGATIVE BLOOD Negative NEGATIVE LEUKOCYTES Negative NEGATIVE NITRITES Negative NEGATIVE COVID 19 [facility] PCR ([employer]) 2021-07-17 SARS-CoV-2, PCR NOT DETECTED NOT DETECTED SARS-CoV-2 Comment Negative results should not be used as the sole basis for diagnosis, treatment, or other patient management decisions. False negatives should be considered in the context of recent exposures and the presence of clinical signs and symptoms consistent with COVID-19. False negatives may also occur in patients whose viral load is below the limit of detection. An individual without symptoms of COVID-19 and who is not shedding the virus would be expected to have a negative result. CT SPINE LUMBAR W CONTRAST 2021-07-17 MAGNESIUM 2021-07-17 MAGNESIUM 2.1 1.8-2.5 BASIC METABOLIC PROFILE 2021-04-26 SODIUM 140 134-143 POTASSIUM 3.3 3.5-5.1 CHLORIDE 103 98-111 CO2 29 22-32 CALCIUM 8.2 8.9-10.3 BUN 19 8-26 CREATININE 0.79 0.44-1.00 EGFR >60 EGFR CMT Multiply calculated EGFR by 1.025 for Afro-americans. A/GAP 8.0 3.0-12.0 OSMOLARITY 282 275-295 B/CR 24.1 8.0-20.0 CBC, WITH AUTO DIFF 2021-04-26 WBC 11.2 4.8-10.8 RBC 3.51 4.20-5.40 HGB 10.6 12.0-16.0 HCT 33.8 37.0-47.0 MCV 96.3 81.0-99.0 MCH 30.2 27.0-31.0 MCHC 31.4 32.0-37.0 RDW-CV 14.6 11.5-14.5 PLT 288 130-400 MPV 8.7 7.4-10.4 NE% 65.4 42.2-75.2 LY% 23.9 20.5-51.1 MO% 7.7 1.7-9.3 EO% 1.9 0.9-2.9 BA% 0.5 0.0-0.8 NE# 7.3 1.4-6.5 LY# 2.7 1.2-3.4 MO# 0.9 0.1-0.6 EO# 0.2 0.0-0.2 BA# 0.1 0.0-0.2 HEMOGLOBIN 2021-04-26 HGB 11.2 12.0-16.0 CBC, WITH AUTO DIFF 2021-04-25 WBC 20.6 4.8-10.8 RBC 4.49 4.20-5.40 HGB 13.3 12.0-16.0 HCT 43.3 37.0-47.0 MCV 96.4 81.0-99.0 MCH 29.6 27.0-31.0 MCHC 30.7 32.0-37.0 RDW-CV 14.6 11.5-14.5 PLT 417 130-400 MPV 9.1 7.4-10.4 NE% 82.4 42.2-75.2 LY% 9.2 20.5-51.1 MO% 6.6 1.7-9.3 EO% 0.7 0.9-2.9 BA% 0.5 0.0-0.8 NE# 17.0 1.4-6.5 LY# 1.9 1.2-3.4 MO# 1.4 0.1-0.6 EO# 0.2 0.0-0.2 BA# 0.1 0.0-0.2 SMEAR? YES SEDIMENTATION RATE 2021-04-25 ESR 22 <=30 PT/APTT PANEL 2021-04-25 PROTIME 10.0 9.1-10.6 INR 1.0 0.9-1.1 INR_TEXT THERAPEUTIC INR RANGES FOR WARFARIN Uncomplicated venous thromboembolic disease 2 - 3 Lupus Anticoagulant and recurrent thrombosis 3 - 3.5 Mechanical prosthetic valve APTT 20.9 21.3-28.4 URINALYSIS COMPLETE 2021-04-25 COLOR Yellow YELLOW CLARITY Clear CLEAR SPECIFIC GRAVITY 1.020 1.000-1.030 pH 7.0 5.0-8.0 PROTEIN Trace NEGATIVE GLUCOSE Negative NEGATIVE KETONES Negative NEGATIVE UROBILINOGEN 0.2 E.U./dL 0.2 E.U./DL BILIRUBIN Negative NEGATIVE BLOOD Moderate NEGATIVE LEUKOCYTES Trace NEGATIVE NITRITES Negative NEGATIVE RBCs 4-6 0-3 SQ EPITHELIAL CELLS 6-10 0-3 CLUE CELLS NONE SEEN RTE CELLS 0-3 TRANSITIONAL EPIs 0-3 BACTERIA RARE NONE SEEN CRYSTALS NONE SEEN HYALINE CASTS NONE SEEN GRANULAR CASTS NONE SEEN RBC CASTS NONE SEEN WBC CASTS NONE SEEN WAXY CASTS NONE SEEN CELLULAR CASTS NONE SEEN YEAST NONE SEEN TRICHOMONADS NONE SEEN SPERMATOZOA SEEN NONE SEEN URINE CULTURE NO NO COMPREHENSIVE METABOLIC 2021-04-25 PROFILE SODIUM 140 134-143 POTASSIUM 3.6 3.5-5.1 CHLORIDE 100 98-111 CO2 25 22-32 CALCIUM 8.8 8.9-10.3 BUN 25 8-26 CREATININE 0.81 0.44-1.00 TOTAL BILIRUBIN 0.6 0.3-1.2 TOTAL PROTEIN 6.9 6.5-8.1 ALBUMIN 3.8 3.5-5.0 ALKALINE PHOS 59 32-92 AST 26 15-41 ALT 15 14-54 A/GAP 15.0 3.0-12.0 B/CR 30.9 8.0-20.0 OSMOLARITY 289 275-295 GLOBULIN 3.1 2.3-3.5 A/G 1.2 1.0-2.5 C-REACTIVE PROTEIN (CRP) 2021-04-25 CRP 11.1 <=10.0 HEMOGLOBIN 2021-04-25 HGB 11.0 12.0-16.0 LACTIC ACID, REFLEX TO 3HR 2021-04-25 LACTIC ACID 2.0 0.5-2.2 MR SPINE LUMBAR WO CONT 2021-04-25 BASIC METABOLIC PROFILE 2020-11-04 SODIUM 139 136-145 POTASSIUM 4.4 3.5-5.1 CHLORIDE 102 98-111 CO2 30 22-32 CALCIUM 8.5 8.9-10.3 BUN 15 8-26 CREATININE 0.74 0.44-1.00 EGFR >60 EGFR CMT Multiply calculated EGFR by 1.025 for Afro-americans. A/GAP 7.0 3.0-12.0 OSMOLARITY 278 275-295 B/CR 20.3 8.0-20.0 CBC, WITH AUTO DIFF 2020-11-04 WBC 7.3 4.8-10.8 RBC 4.40 4.20-5.40 HGB 12.8 12.0-16.0 HCT 40.9 37.0-47.0 MCV 93.0 81.0-99.0 MCH 29.1 27.0-31.0 MCHC 31.3 32.0-37.0 RDW-CV 15.1 11.5-14.5 PLT 169 130-400 MPV 8.7 7.4-10.4 NE% 76.7 42.2-75.2 LY% 16.6 20.5-51.1 MO% 5.5 1.7-9.3 EO% 0.5 0.9-2.9 BA% 0.3 0.0-0.8 NE# 5.6 1.4-6.5 LY# 1.2 1.2-3.4 MO# 0.4 0.1-0.6 EO# 0.0 0.0-0.2 BA# 0.0 0.0-0.2 MAGNESIUM 2020-11-04 MAGNESIUM 2.3 1.8-2.5 ALBUMIN 2020-11-03 ALBUMIN 3.1 3.5-5.0 BASIC METABOLIC PROFILE 2020-11-03 SODIUM 141 136-145 POTASSIUM 3.8 3.5-5.1 CHLORIDE 106 98-111 CO2 28 22-32 CALCIUM 8.4 8.9-10.3 BUN 17 8-26 CREATININE 0.68 0.44-1.00 EGFR >60 EGFR CMT Multiply calculated EGFR by 1.025 for Afro-americans. A/GAP 7.0 3.0-12.0 OSMOLARITY 282 275-295 B/CR 25.0 8.0-20.0 CBC, WITH AUTO DIFF 2020-11-03 WBC 7.5 4.8-10.8 RBC 4.31 4.20-5.40 HGB 12.7 12.0-16.0 HCT 40.1 37.0-47.0 MCV 93.0 81.0-99.0 MCH 29.5 27.0-31.0 MCHC 31.7 32.0-37.0 RDW-CV 15.8 11.5-14.5 PLT 171 130-400 MPV 8.9 7.4-10.4 NE% 53.3 42.2-75.2 LY% 37.1 20.5-51.1 MO% 6.9 1.7-9.3 EO% 1.6 0.9-2.9 BA% 0.8 0.0-0.8 NE# 4.0 1.4-6.5 LY# 2.8 1.2-3.4 MO# 0.5 0.1-0.6 EO# 0.1 0.0-0.2 BA# 0.1 0.0-0.2 PT/APTT PANEL 2020-11-03 PROTIME 10.3 9.1-10.6 INR 1.0 0.9-1.1 INR_TEXT THERAPEUTIC INR RANGES FOR WARFARIN Uncomplicated venous thromboembolic disease 2 - 3 Lupus Anticoagulant and recurrent thrombosis 3 - 3.5 Mechanical prosthetic valve APTT 21.2 21.3-28.4 MAGNESIUM 2020-11-03 MAGNESIUM 2.1 1.8-2.5 BASIC METABOLIC PROFILE 2020-11-02 SODIUM 140 136-145 POTASSIUM 3.6 3.5-5.1 CHLORIDE 105 98-111 CO2 26 22-32 CALCIUM 8.7 8.9-10.3 BUN 26 8-26 CREATININE 0.71 0.44-1.00 EGFR >60 EGFR CMT Multiply calculated EGFR by 1.025 for Afro-americans. A/GAP 9.0 3.0-12.0 OSMOLARITY 284 275-295 B/CR 36.6 8.0-20.0 CBC, WITH AUTO DIFF 2020-11-02 WBC 9.8 4.8-10.8 RBC 4.57 4.20-5.40 HGB 13.4 12.0-16.0 HCT 42.8 37.0-47.0 MCV 93.7 81.0-99.0 MCH 29.3 27.0-31.0 MCHC 31.3 32.0-37.0 RDW-CV 15.9 11.5-14.5 PLT 207 130-400 MPV 8.9 7.4-10.4 NE% 62.9 42.2-75.2 LY% 29.3 20.5-51.1 MO% 6.2 1.7-9.3 EO% 0.7 0.9-2.9 BA% 0.5 0.0-0.8 NE# 6.2 1.4-6.5 LY# 2.9 1.2-3.4 MO# 0.6 0.1-0.6 EO# 0.1 0.0-0.2 BA# 0.1 0.0-0.2 MAGNESIUM 2020-11-02 MAGNESIUM 2.3 1.8-2.5 CBC, WITH AUTO DIFF 2020-11-01 WBC 14.3 4.8-10.8 RBC 4.67 4.20-5.40 HGB 13.8 12.0-16.0 HCT 43.7 37.0-47.0 MCV 93.6 81.0-99.0 MCH 29.6 27.0-31.0 MCHC 31.6 32.0-37.0 RDW-CV 16.0 11.5-14.5 PLT 235 130-400 MPV 9.0 7.4-10.4 NE% 90.1 42.2-75.2 LY% 5.7 20.5-51.1 MO% 3.2 1.7-9.3 EO% 0.1 0.9-2.9 BA% 0.3 0.0-0.8 NE# 12.9 1.4-6.5 LY# 0.8 1.2-3.4 MO# 0.5 0.1-0.6 EO# 0.0 0.0-0.2 BA# 0.1 0.0-0.2 SEDIMENTATION RATE 2020-11-01 ESR 7 <=30 COMPREHENSIVE METABOLIC 2020-11-01 PROFILE SODIUM 140 136-145 POTASSIUM 3.9 3.5-5.1 CHLORIDE 103 98-111 CO2 27 22-32 CALCIUM 8.7 8.9-10.3 BUN 29 8-26 CREATININE 0.81 0.44-1.00 TOTAL BILIRUBIN 0.7 0.3-1.2 TOTAL PROTEIN 6.5 6.5-8.1 ALBUMIN 3.6 3.5-5.0 ALKALINE PHOS 56 32-92 AST 15 15-41 ALT 13 14-54 A/GAP 10.0 3.0-12.0 B/CR 35.8 8.0-20.0 OSMOLARITY 287 275-295 GLOBULIN 2.9 2.3-3.5 A/G 1.2 1.0-2.5 C-REACTIVE PROTEIN (CRP) 2020-11-01 CRP <8.0 <=10.0 CULTURE BLOOD 2020-11-01 CULTURE BLOOD 2020-11-01 WBC 2019-10-16 WBC 13.6 4.8-10.8 WBC 2019-10-15 WBC 16.8 4.8-10.8 ALBUMIN 2019-10-15 ALBUMIN 2.9 3.5-5.0 URINALYSIS COMPLETE 2019-10-15 COLOR Yellow YELLOW CLARITY Slightly Cloudy CLEAR SPECIFIC GRAVITY 1.020 1.000-1.030 pH 5.5 5.0-8.0 PROTEIN Negative NEGATIVE GLUCOSE Negative NEGATIVE KETONES Negative NEGATIVE UROBILINOGEN 0.2 E.U./dL 0.2 E.U./DL BILIRUBIN Negative NEGATIVE BLOOD Moderate NEGATIVE LEUKOCYTES Negative NEGATIVE NITRITES Negative NEGATIVE RBCs 10-25 0-3 SQ EPITHELIAL CELLS 4-6 0-3 CLUE CELLS NONE SEEN RTE CELLS 0-3 TRANSITIONAL EPIs 0-3 BACTERIA 2+ NONE SEEN CRYSTALS NONE SEEN HYALINE CASTS NONE SEEN GRANULAR CASTS NONE SEEN RBC CASTS NONE SEEN WBC CASTS NONE SEEN WAXY CASTS NONE SEEN CELLULAR CASTS NONE SEEN YEAST NONE SEEN TRICHOMONADS NONE SEEN SPERMATOZOA SEEN NONE SEEN URINE CULTURE YES NO CULTURE URINE 2019-10-15 WBC 2019-10-15 WBC 15.2 4.8-10.8 BASIC METABOLIC PROFILE 2019-10-14 SODIUM 135 136-145 POTASSIUM 3.8 3.5-5.1 CHLORIDE 103 98-111 CO2 25 22-32 CALCIUM 8.0 8.9-10.3 BUN 19 8-26 CREATININE 0.58 0.44-1.00 EGFR 107 EGFR CMT Multiply calculated EGFR by 1.025 for Afro-americans. A/GAP 7.0 3.0-12.0 OSMOLARITY 275 275-295 B/CR 32.8 8.0-20.0 CBC, WITH AUTO DIFF 2019-10-14 WBC 11.8 4.8-10.8 RBC 3.72 4.20-5.40 HGB 9.8 12.0-16.0 HCT 31.5 37.0-47.0 MCV 84.7 81.0-99.0 MCH 26.3 27.0-31.0 MCHC 31.1 32.0-37.0 RDW-CV 15.1 11.5-14.5 PLT 462 130-400 MPV 8.6 7.4-10.4 NE% 86.7 42.2-75.2 LY% 9.6 20.5-51.1 MO% 2.3 1.7-9.3 EO% 0.0 0.9-2.9 BA% 0.1 0.0-0.8 NE# 10.3 1.4-6.5 LY# 1.1 1.2-3.4 MO# 0.3 0.1-0.6 EO# 0.0 0.0-0.2 BA# 0.0 0.0-0.2 MAGNESIUM 2019-10-14 MAGNESIUM 2.0 1.8-2.5 MR SPINE LUMBAR WO CONT 2019-09-11 REASON FOR VISIT [facility] follow up, [facility] 4 week pessary change, Pessary, Penciller est Consult Cystocele/ Bladdder Atony,UrinaryFrequency, Requesting a call back , [facility] discuss injections (PLEASE CALL [phone]), still waiting for an appt, External Rx History Verification, psyc consult, psyc consult, psy consult, [facility] CAUDAL JOHNIE , no Auth required Procedure Schedule/10/13, [facility]- MED F/UP, support belt , concerns, [facility] f/u bilat ischial bursitis injection , concerns, [facility] ISCHIAL BURSA INJECTION, Increase BUTRANS to 12, Phone appt w//3RD CALL , [facility]- Pain elevated, pt pain out of control, pt in severe pain/PCP CALLED - med update, RF Butrans 10 MCG/HR Patch Weekly, discuss pt/PT CALLED, RF request , RX REQUEST, [facility] - bilateral ischial bursa injection, [facility] - 1 month f/up med check , Update - Please review, [facility]- MED F/UP, pain patch/requesting call, RX needs PA , [facility]- Discuss patch , ? pain patch , [facility]- 4WK F/UP [phone], TeleMed Phone - , [facility]- L4 Selective Nerve root f/u, Update, requesting call , N/S Call, [facility] Pessary , [facility] Pessary , Appointment today, [facility], Pessary concerns, Prolapse/Pessary , requesting call , Phone message, Tx plan , [facility]- L4 Selective Nerve root,[facility] pessary, *11/13 _update - Pessary concerns, F/U / son called back, [facility]- Bilateral Piriformis, Call back request, AP - 4 wk f/up , Bilateral bursa , [facility]- Visit on the floor , Pt admitted , [facility] - bilateral SIJ , f/up L side pain (MRI done 09/11/19 [facility]), update/increased pain , [facility] - 6 wk f/up, Bilateral SIJ , [facility]- back pain, RIGHT , f/up c/o pain, update / still in pain, [facility] - f/u inj, procedure update , [facility] - L. RFL, [facility]- RFL , Right L345 RFL , [facility] - medial branch block, [facility] - L345 medial branch block, [facility]- 1 wk fu , [facility] - Bilat L345 MBB & R. Knee Inj., [facility]- backpain, [facility] NEW CK PESSAARY , NASAL SPRAY, ent allergy consult, FU mammo & u/s, Preload EMR clinical data Insurance Providers [facility] Member Patient Patient Patient Patient Patient Subscriber Subscriber Subscriber Group Insurance Plan Plan Plan Plan ID Relationship Address Phone Name Date of ID Name Date of No Type Insurance Insurance Insurance Coverage to Subscriber Address Phone Name Dates MEDICARE [phone] MEDICARE self Jessica [id number] PART A [id number] PART A [facility] [id number] MEDICARE [phone] MEDICARE self Jessica [id number] [place] [address] MEDICARE [phone] MEDICARE self Jessica [id number] PART A [id number] PART A [facility] [id number] MEDICARE [phone] MEDICARE self Jessica [id number] [facility] [id number] [place] [phone] [place] [id number] ATTN 45 Patel 4 P0 CLAIMS [facility] [id number] NGS [phone] NGS self Jessica [id number] MEDICARE [id number] [place] [id number] [place] [phone] [place] [id number] ATTN 45 Patel 55 [phone] CLAIMS [facility] [id number]
--- OUTSIDE RECORDS SUMMARY | 2022-11-06 12:38 | XMS_ITS ---
:1940 Author Organization [facility] Address [address] [place] [address] Care Team Providers Name Role Phone Jayy Oneal Unavailable Unavailable PROBLEMS Type Condition ICD9-CM [id number] Onset Condition SNOMED Cod e Code Code Dates Status Problem Overactive bladder N32.81 Active 7 50785234 Problem Midline cystocele N81.11 Active 42 6922558 Problem Atrophic vaginitis N95.2 Active 5 3320190 Problem Vaginal bleeding N93.9 Active 289 240765 Problem Rectocele N81.6 Active 817227271 Problem Adrenal nodule E27.8 Active Problem Irritable bowel K58.9 Active 1074 3008 syndrome, unspecified type Problem Hypothyroidism E03.9 Active 62778 008 (acquired) Problem Postmenopausal N95.0 Active 38220 009 bleeding Problem Depressive disorder F32.9 Active 02749672 Problem Leg length M21.70 Active 816425853 discrepancy Problem Osteoarthritis of M17.0 Active 23 6576934 both knees, unspecified osteoarthritis type Problem Gastroesophageal K21.9 Active 235 465694 reflux disease, esophagitis presence not specified Problem Hyperlipidemia, E78.5 Active 5582 2004 unspecified hyperlipidemia type Problem Essential I10 Active 24959742 hypertension ALLERGIES Substance Reaction Event Type Date Status Penicillin Unknown Non Drug Allergy Dec, Active demerol N&V after 2nd dsy Non Drug Allergy Dec, Active codeine Unknown Non Drug Allergy Dec, Active gluten abdominal pain Non Drug Allergy Dec, Inactive Lisinopril cough Drug Allergy Dec, Active Morphine Unknown Non Drug Allergy Dec, Active Capsaicin rash Drug Allergy Dec, Active erythromycin stomach pain Non Drug Allergy Dec, Active nubain Unknown Non Drug Allergy Dec, Active ENCOUNTERS Encounter Location Date Diagnosis [facility] Dec, [place] [address] [facility] Dec, Midline cys tocele N81.11 [place] [address] and Rectocel e N81.6 [facility] Dec, [place] [address] [facility] Dec, OFFICE 1 [place] [address] [facility] Nov, Depres sive disorder F32.9 ; OFFICE 1 [place] Adrenal nodule E27.8 ; [address] Osteoarthritis o f both knees, unspecifi ed osteoarthritis t ype M17.0 ; Essential hypert ension I10 ; Hyperlipidemia , unspecified hype rlipidemia type E78.5 ; Hyp othyroidism (acquired) E03.9 and Lumbar radiculopathy, c hronic M54.16 [facility] Nov, OFFICE 1 [place] [address] Nov, Depressive dis order F32.9 ; [place] Adrenal nodule E 27.8 ; [address] Osteoarthritis o f both knees, unspecifi ed osteoarthritis t ype M17.0 ; Essential hypert ension I10 ; Hyperlipidemia , unspecified hype rlipidemia type E78.5 ; Hyp othyroidism (acquired) E03.9 and Lumbar radiculopathy, c hronic M54.[address] Nov, Depressive dis order F32.9 [place] [address] [facility] Oct, [place] [address] Oct, Depressive dis order F32.9 ; [place] Adrenal nodule E 27.8 ; [address] Osteoarthritis o f both knees, unspecifi ed osteoarthritis t ype M17.0 ; Essential hypert ension I10 ; Hyperlipidemia , unspecified hype rlipidemia type E78.5 ; Hyp othyroidism (acquired) E03.9 ; Irritable bowel syndrome, unspecified type K58.9 ; Gastroesophageal reflux disease, esophag itis presence not spe cified K21.9 ; Anemia, unspecified type D64.9 and L umbar radiculopathy, c hronic M54.16 [facility] Jul, Onychomycosis B35.1 ; Foot [address], pain M79.673 [place] [address] discrepancy M21. 70 [facility] Apr, Midline cys tocele N81.11 ; [place] [address] Rectocele N8 1.6 and Screening for br east cancer Z12.31 [facility] [facility] [place] March, Onychomycosis B3 5.1 ; Foot [place] pain M79.673 ; L eg length [address]75[address] discrepancy M21. 70 ; Blister T14.8XXA ; Hyperkeratosis L 85.9 and Tinea pedis B35. 3 [facility] Oct, Onychomycosis B35.1 ; Foot [address], pain M79.673 ; [place] [address] discrepancy M21. 70 ; Blister T14.8XXA ; Hyperkeratosis L 85.9 and Tinea pedis B35. 3 [facility] Sep, Midline cys tocele N81.11 ; [place] [address] Rectocele N8 1.6 and Screening for br east cancer Z12.31 [facility] Jun, Onychomycosis B35.1 ; Foot [address], pain M79.673 ; [place] [address] toenail of right foot L60.0 ; Plantar fascii tis of right foot M72.2 and Leg length discrepan cy M21.70 [facility] March, Midline cys tocele N81.11 ; [place] [address] Rectocele N8 1.6 and Postmenopausal b leeding N95.0 [facility] March, Midline cys tocele N81.11 ; [place] [address] Rectocele N8 1.6 and Postmenopausal b leeding N95.0 [facility] [address] [place] [address] March, [place] [address] [facility] Feb, Onychomycosis B35.1 ; Foot [address], pain M79.673 ; [place] [address] M20.5X9 ; Hyperk eratosis L85.9 and Punctu re wound T14.8XXA [facility] Dec, Midline cys tocele N81.11 [place] [address] and Atrophic vaginitis N95.2 [facility] Nov, Midline cys tocele N81.11 ; [place] [address] Vaginal blee ding N93.9 and Atrophic vaginit is N95.2 [facility] [facility] Oct, Onychomycosis B35.1 ; Foot [address], pain M79.673 ; [place] [address] M20.5X9 and Hype rkeratosis L85.9 [facility] Aug, Midline cys tocele N81.11 [place] [address] and Vaginal bleeding N93.9 [facility] Jun, Midline cys tocele N81.11 [place] [address] [address] Jun, Onychomycosis B35.1 ; Foot [address], pain M79.673 ; [place] [address] M20.5X9 and Hype rkeratosis L85.9 [facility] [facility] Jan, Onychomycosis B3 5.1 ; Foot [place] pain M79.673 ; [place] [address] M20.5X9 and Hype rkeratosis L85.9 [facility] SUITE Nov, OFFICE 1 [place] [address] [address] Sep, Onychomycosis B35.1 ; Foot [address], pain M79.673 ; [place] [address] M20.5X9 and Hype rkeratosis L85.9 [facility] [address] [place] [address] Jun, Midline cys tocele N81.11 [place] [address] and Overacti ve bladder N32.81 [facility] May, Onychomycosis B35.1 ; Foot [address], pain M79.673 [place] [address] M20.5X9 [facility] Jan, Onychomycosis B35.1 ; Foot [address], pain M79.673 [place] [address] M20.5X9 [facility] Oct, Onychomycosis B35.1 ; Foot [address], pain M79.673 [place] [address] M20.5X9 [facility] [facility] Jul, Onychomycosis 11 0.1 ; [place] 727.1 ; FOOT [address] PAIN 729.5 and Hyperkeratosis 7 01.1 [facility] Apr, Cystocele, midline 618.01 ; [place] [address] Overactive b ladder 596.51 ; Hemorroid, ext 4 55.3 and MAMMOGRAM, SCREE RAMEZ V76.12 [facility] Feb, Onychomycosis 110.1 ; [address], [place] 72 7.1 ; [place] [address] PAIN 729.5 and Hyperkeratosis 7 01.1 [facility] Nov, Onychomycosis 110.1 ; [address], [place] 72 7.1 ; [place] [address] of skin 706.8 ; Leg length discrepancy 736. 81 ; FOOT PAIN 729.5 and Hyperkeratosis 7 01.1 [facility] Jul, Onychomycosis 110.1 ; [address], [place] 72 7.1 ; [place] [address] of skin 706.8 ; Leg length discrepancy 736. 81 and FOOT PAIN 729.5 [facility] 17 Apr, 2014 Cystocele, midline 618.01 [place] [address] and Overacti ve bladder 596.51 [facility] 11 Apr, 2014 OFFICE 1 [place] [address] [address] Apr, Onychomycosis 110.1 ; [address], [place] 72 7.1 ; [place] [address] of skin 706.8 an d Leg length discrepan cy 736.81 [facility] SUITE Dec, OFFICE 1 [place] [address] xxADMIT,COMMUNICATIONS [facility] Dec, [place] [address] [facility] [facility] Dec, Onychomycosis 110.1 ; [address] [place], [place] 72 7.1 ; [place] [address] of skin 706.8 an d Leg length discrepan cy 736.81 [facility] SUITE Aug, OFFICE 1 [place] [address] [facility] Aug, Onychomycosis 110.1 ; [address], [place] 72 7.1 ; [place] [address] of skin 706.8 an d Leg length discrepan cy 736.81 [facility] Jun, Cystocele, midline 618.01 ; [place] [address] Rectocele 61 8.04 and Overactive bladd er 596.51 [facility] May, Onychomycosis 11 0.1 ; [place] 727.1 ; [place] [address] of skin 706.8 an d Leg length discrepan cy 736.81 [facility] SUITE May, OFFICE 1 [place] [address] [facility] SUITE May, OFFICE 1 [place] [address] [facility] SUITE Apr, OFFICE 1 [place] [address] [facility] Apr, Onychomycosis 11 0.1 ; [place] 727.1 ; [place] [address] of skin 706.8 an d Leg length discrepan cy 736.81 [facility] [facility] Apr, Onychomycosis 110.1 ; [address], [place] 72 7.1 ; [place] [address] of skin 706.8 an d Leg length discrepan cy 736.81 [facility] SUITE Feb, OFFICE 1 [place] [address] [facility] Nov, [place] [address] [facility] Nov, Onychomycosis 11 0.1 ; [place] 727.1 ; [place] [address] of skin 706.8 an d Hyperkeratosis 7 01.1 [facility] NO Aug, [place] [address] [facility] 8 [place] [place] Aug, Onychomycosis 11 0.1 ; [place] 727.1 and [address] X[place]osis of skin 706.8 [facility] [facility] March, Onychomycosis 110.1 ; [address] [place], [place] 72 7.1 [place] [address] X[place]osis of skin 706.8 [facility] [address] [place] [address] Dec, Cystocele, midline 618.01 ; [place] [address] Rectocele 61 8.04 and Overactive bladd er 596.51 [facility] Nov, Onychomycosis 110.1 ; [address] [place] [place] [address] Xerosis of skin 706.8 [facility] Nov, Rectocele 6 18.04 and [place] [address] Postmenopaus al bleeding 627.1 [facility] [address] [place] [address] Nov, Vaginal pro lapse NOS w/o [place] [address] mention of u terine prolapse 618.00 and Postm enopausal bleeding 627.1 [facility] [address] [place] [address] Nov, Vaginal pro lapse NOS w/[place] [address] mention of u terine prolapse 618.00 and Vagin itis and vulvovaginitis, unspecified 616.10 [facility] Oct, Vaginitis a nd [place] [address] vulvovaginit is, unspecified 616.10 [facility] Oct, Postmenopau olvin bleeding [place] [address] 627.1 [facility] [address] [place] [address] Sep, Sciatica 72 4.3 [place] [address] [facility] Sep, Cystocele, midline 618.01 [place] [address] [facility] Aug, Back pain 7 24.5 [place] [address] [facility] Jul, Back pain 7 24.5 ; [place] [address] Depression w ith anxiety 300.4 ; Sciatica 724.3 and Cystocele, midli ne 618.01 [facility] Jul, Vaginal pro lapse NOS w/o [place] [address] mention of u terine prolapse 618.00 [facility] [place] Jul, Onychomycosis 11 0.1 and [place] 727.1 [address] [facility] Jul, [place] [address] [facility] May, Back pain 7 24.5 and [place] [address] Depression w ith anxiety 300.4 [facility] May, Cystocele, midline 618.01 [place] [address] [facility] 07 Apr, 2011 Onychomycosis 11 0.1 and [place] 727.1 [address] [facility] March, Sciatica 72 4.3 [place] [address] Depression w ith anxiety 300.4 [facility] March, Cystocele, midline 618.01 [place] [address] and Rectocel e 618.04 [facility] March, Overactive ernesto dder 596.51 [place] [address] [address] [place] [address] March, Overactive ernesto dder 596.51 [place] [address] [facility] March, [place] [address] [facility] Feb, Overactive ernesto dder 596.51 [place] [address] [facility] Feb, Sciatica 72 4.3 ; [place] [address] with anxiety 300.4 ; Overactive bladd er 596.51 and Arthritis, N OS 716.90 [facility] Feb, Cystocele, midline 618.01 [place] [address] and Rectocel e 618.04 [facility] Feb, Overactive bladder 596.51 [place] [address] [facility] Feb, Overactive bladder 596.51 [place] [address] [facility] Feb, Overactive bladder 596.51 [place] [address] [facility] Jan, Overactive bladder 596.51 [place] [address] [facility] Jan, [place] [address] [facility] Jan, Overactive ernesto dder 596.51 [place] [address] [facility] Jan, Cystocele, midline 618.01 ; [place] [address] Rectocele 61 8.04 and Vaginitis and vulvovaginitis, unspecified 616.10 [facility] Jan, Overactive ernesto dder 596.51 [place] [address] [facility] Jan, Overactive bladder 596.51 [place] [address] [facility] Jan, [place] [address] [facility] Jan, Overactive bladder 596.51 [place] [address] [facility] [facility] Jan, Onychomycosis 110.1 [address] [place] [address] 7.1 [place] [address] [facility] [address] [place] [address] Dec, Cystocele, midline 618.01 ; [place] [address] Rectocele 61 8.04 and Overactive bladd er 596.51 [facility] Dec, HEM ATURIA NOS 599.70 [place] [address] [facility] Dec, Overactive bladder 596.51 [place] [address] and HEMATURI A NOS 599.70 [facility] Dec, [place] [address] [facility] Dec, Overactive bladder 596.51 [place] [address] [facility] Nov, [place] [address] [facility] Nov, Sciatica 72 4.3 ; [place] [address] bladder 596. 51 and Depression with anxiety 300.4 [facility] Nov, Cystocele, midline 618.01 ; [place] [address] Rectocele 61 8.04 and Overactive bladd er 596.51 [facility] Oct, Onychomycosis 11 0.1 and [place] 727.[address] [facility] Sep, Cystocele, midline 618.01 ; [place] [address] Rectocele 61 8.04 and Overactive bladd er 596.51 [facility] Sep, [place] [address] [facility] Aug, Cystocele, midline 618.01 [place] [address] [facility] Jul, Cystocele, midline 618.01 [place] [address] and Rectocel e 618.04 [facility] Jul, [place] [address] 300.4 ; Cyst ocele, midline 618.01 and Sciat ica 724.3 [facility] May, Cystocele, midline 618.01 [place] [address] [facility] May, [place] [address] 300.4 and Sc iatica 724.3 [facility] May, Onychomycosis 11 0.1 [place] [address] [facility] March, Cystocele, midline 618.01 [place] [address] and Rectocel e 618.04 [facility] March, [place] [address] 300.4 ; Cyst ocele, midline 618.01 and Sciat ica 724.3 [facility] [address] [place] [address] SUITE Feb, OFFICE 1 [place] [address] [address] Jan, Onychomycosis 11 0.1 [place] [address] [facility] Jan, Sciatica 72 4.3 ; [place] [address] with anxiety 300.4 and Vaginal prolapse NOS w/o mention of uteri ne prolapse 618.00 [facility] Jan, Cystocele, midline 618.01 [place] [address] and Rectocel e 618.04 [facility] Dec, [place] [address] 300.4 and Ba ck pain 724.5 [facility] Dec, Cystocele, midline 618.01 [place] [address] and Rectocel e 618.04 [facility] Sep, Cystocele, midline 618.01 [place] [address] and Vaginal prolapse NOS w/o mention of u terine prolapse 618.00 [facility] Sep, Sciatica 72 4.3 ; [place] [address] with anxiety 300.4 and Back pain 724.5 [facility] Sep, Onychomycosis 11 0.1 and [place] Hyperkeratosis 7 01.1 [address] [facility] Jul, Cystocele, midline 618.01 [place] [address] [facility] Jul, [place] [address] 300.4 ; Back pain 724.5 and Vaginal prolapse NOS w/o mention of uteri ne prolapse 618.00 [facility] May, [place] [address] [facility] May, Cystocele, midline 618.01 [place] [address] and Rectocel e 618.04 [facility] May, Cystocele, midline 618.01 ; [place] [address] Sciatica 724 .3 ; Depression with anxiety 300 .4 and Back pain 724.5 [facility] Apr, Onychomycosis 11 0.1 and [place] Hyperkeratosis 7 01.1 [address] [facility] March, Cystocele, midline 618.01 ; [place] [address] Sciatica 724 .3 and Depression with anxiety 300.4 [facility] March, Cystocele, midline 618.01 [place] [address] and Vaginal prolapse NOS w/o mention of u terine prolapse 618.00 [facility] Feb, [place] [address] [facility] Feb, [place] [address] [facility] [address] [place] [address] Feb, Cystocele, midline 618.01 [place] [address] and Rectocel e 618.04 [facility] Feb, Cystocele, midline 618.01 ; [place] [address] Rectocele 61 8.04 and Vaginal prolapse NOS w/o mention of uteri ne prolapse 618.00 [facility] Jan, [place] [address] [facility] [address] [place] [address] Jan, Cystocele, midline 618.01 ; [place] [address] Rectocele 61 8.04 and Vaginal prolapse NOS w/o mention of uteri ne prolapse 618.00 [facility] [facility] Dec, Onychomycosis 11 0.1 and [place] Hyperkeratosis 7 01.1 [address] [facility] [address] [place] [address] Dec, Cys tocele, midline 618.01 ; [place] [address] Rectocele 61 8.04 and Vaginal prolapse NOS w/o mention of uteri ne prolapse 618.00 [facility] [address] [place] [address] Dec, Cystocele, midline 618.01 ; [place] [address] Depression w ith anxiety 300.4 and Back p ain 724.5 [facility] [address] [place] [address] Dec, [place] [address] [facility] [address] [place] [address] Dec, Cystocele, midline 618.01 ; [place] [address] Rectocele 61 8.04 and Vaginal prolapse NOS w/o mention of uteri ne prolapse 618.00 [facility] Nov, Cys tocele, midline 618.01 ; [place] [address] Depression w ith anxiety 300.4 and Back p ain 724.5 [facility] Oct, Cys tocele, midline 618.01 ; [place] [address] Depression w ith anxiety 300.4 and Back p ain 724.5 [facility] Sep, [employer] [place] [address] V72.31 and C ystocele, midline 618.01 [facility] [facility] [place] [place] 15 Aug, 2008 Onychomycosis 11 0.1 and [place] Hyperkeratosis 7 01.1 [address] [facility] 13 Aug, 2008 [employer] [place] [address] V72.31 and C ystocele, midline 618.01 [place] [facility] 09 Aug, 2008 Cys tocele, midline 618.01 ; [place] [address] Sciatica 724 .3 and Depression with anxiety 300.4 [place] [facility] Jul, Cys tocele, midline 618.01 ; [place] [address] Sciatica 724 .3 and Depression with anxiety 300.4 [place] [facility] May, Cys tocele, midline 618.01 ; [place] [address] Sciatica 724 .3 and Depression with anxiety 300.4 [place] [facility] Apr, Cys tocele, midline 618.01 ; [place] [address] Sciatica 724 .3 and Depression with anxiety 300.4 [facility] [facility] [place] March, Onychomycosis 11 0.1 [place] [address] [facility] [facility] March, [place] [address] [facility] [facility] March, Cys tocele, midline 618.01 ; [place] [address] Sciatica 724 .3 and Depression with anxiety 300.4 [place] [facility] Feb, [place] [address] [facility] Feb, Cys tocele, midline 618.01 ; [place] [address] Sciatica 724 .3 and Depression with anxiety 300.4 [facility] [facility] Jan, [place] [address] [facility] Jan, Cys tocele, midline 618.01 ; [place] [address] Sciatica 724 .3 and Depression with anxiety 300.4 [facility] Nov, Cys tocele, midline 618.01 ; [place] [address] Sciatica 724 .3 and Depression with anxiety 300.4 [facility] Oct, [place] [address] 300.4 ; Cyst ocele, midline 618.01 and Sciat ica 724.3 [facility] 16 Sep, 2007 Onychomycosis 11 0.1 [place] [address] [facility] Sep, [place] [address] 300.4 ; Cyst ocele, midline 618.01 and Sciat ica 724.3 [facility] [facility] 17 Aug, 2007 Cys tocele NOS w/[place] [address] of uterine p rolapse 618.01 and Rectocele 61 8.04 [facility] [facility] 10 Jul, 2007 Cys tocele, midline 618.01 ; [place] [address] Depression w ith anxiety 300.4 and Back p ain 724.5 [facility] [facility] Jun, [place] [address] [facility] [facility] Jun, [place] [address] [facility] [address] [place] [address] Jun, KEVIN MOGRAM, SCREENING V76.12 [place] [address] [facility] Apr, Cys tocele, midline 618.01 ; [place] [address] Sciatica 724 .3 and Depression with anxiety 300.4 [facility] Apr, Onychomycosis 11 0.1 [place] [address] [place] [facility] Feb, Cys tocele, midline 618.01 ; [place] [address] Sciatica 724 .3 and OTHER ATOPIC DERMATITI S 691.8 [facility] [facility] Jan, Cys tocele, midline 618.01 ; [place] [address] Sciatica 724 .3 and OTHER ATOPIC DERMATITI S 691.8 [facility] Dec, Cys tocele, midline 618.01 ; [place] [address] Sciatica 724 .3 and OTHER ATOPIC DERMATITI S 691.8 [facility] [facility] Nov, [place] [address] [facility] [facility] Nov, [place] [address] [facility] [facility] Oct, [place] [address] vulvovaginit is, unspecified 616.10 [facility] Oct, Onychomycosis [address] [place] [place] [address] [facility] 14 Oct, 2006 Cys tocele, midline 618.01 ; [place] [address] Sciatica 724 .3 and 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 UNKNOWN Oct, [facility] Aug, Cys tocele, midline 618.01 ; [place] [address] Sciatica 724 .3 and 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 [place] [facility] [address] Aug, 2006 [employer]IE[facility] [employer] EXAMINATION OFFICE 1 [place], [place] V72.31 [place] Cyst ocele, [address] midline 618.01 [place] [facility] SU[address] Jul, Cystoc neftaly, midline 618.01 ; OFFICE 1 [place], [place] Sciatica 724.3 and Allergic [address] eczema 691.8 UNKNOWN Jul, MAMMO - HIGH RIS K - SCREENING V76.11 UNKNOWN Jun, [place] [facility] SUITE May, Cystoc neftaly, midline 618.01 ; OFFICE 1 [place], [place] Sciatica 724.3 and Allergic [address] eczema 691.8 UNKNOWN May, [facility] Apr, Onychomycosis [address] [place] [address] UNKNOWN Apr, UNKNOWN Apr, SCREEN MAMMOGRAM NEC V76.12 [place] [facility] Apr, Back p ain 724.5 and OFFICE 1 [place] Depression with anxiety [address] 300.4 [place] [facility] SU[address] March, [place] [address] [place] [address] [facility] [facility] SU[address] Feb, [place]ICE 1 [place] [address] UNKNOWN Jan, IMMUNIZATIONS No Known Immunizations SOCIAL HISTORY Qualifiers Date Never Smoker REASON FOR REFERRAL FUNCTIONAL STATUS PLAN OF CARE Activity Details Follow Up prn Reason: Future Test MG Mammo Screening 20181007 Future Test UA DIPSTICK ONLY-DIAGNOSTIC [id number] Future Test CYTO: PAP SMEAR-Diagnostic ( no HPV) [id number] VITAL SIGNS Height 60.5 in 2019-12-30 Height 60.5 in 2019-12-09 Height 60.5 in 2019-11-17 Height 60.5 in 2019-10-16 Height 60.5 in 2019-07-14 Height 60.5 in 2019-05-05 Height 60.5 in 2019-03-25 Height 60.5 in 2018-10-14 Height 60.5 in 2018-10-06 Height 60.5 in 2018-07-01 Height 60.5 in 2018-04-10 Height 60.5 in 2018-04-03 Height 60.5 in 2018-02-25 Height 60.5 in 2018-01-06 Height 60.5 in 2017-12-10 Height 60.5 in 2017-09-10 Height 60.5 in 2017-07-08 Height 60.5 in 2017-06-11 Height 60.5 in 2017-01-31 Height 60.5 in 2016-09-11 Height 60.5 in 2016-06-12 Height 60.5 in 2016-05-22 Height 60.5 in 2016-01-31 Height 60.5 in 2015-10-18 Height 60.5 in 2015-07-12 Height 60.5 in 2015-05-02 Height 60.5 in 2015-03-08 Height 60.5 in 2014-11-23 Height 60.5 in 2014-08-03 Height N/A in 2014-04-27 Height N/A in 2014-04-20 Height N/A in 2013-12-22 Height N/A in 2013-08-18 Height N/A in 2013-06-23 Height N/A in 2013-05-25 Height N/A in 2013-04-23 Height N/A in 2013-04-21 Height 60.5 in 2012-12-10 Height N/A in 2012-08-12 Height N/A in 2012-04-01 Height N/A in 2011-12-24 Height N/A in 2011-12-04 Height N/A in 2011-11-26 Height N/A in 2011-11-19 Height 60.5 in 2011-11-15 Height N/A in 2011-10-23 Height 60.5 in 2011-10-09 Height N/A in 2011-08-07 Height N/A in 2011-08-06 Height N/A in 2011-05-31 Height 60.5 in 2011-02-28 Height 60.5 in 2011-02-08 Height 60.5 in 2011-01-18 Height 60.5 in 2010-12-06 Height 61 in 2010-10-10 Height 61 in 2010-09-04 Height 61 in 2010-05-31 Height 61 in 2009-07-20 Height N/A in 2008-08-23 Height N/A in 2008-04-06 Height N/A in 2006-10-30 Weight 168.0 lbs 2019-12-30 Weight 169 lbs 2019-12-09 Weight 167.4 lbs 2019-10-16 Weight 168.8 lbs 2019-07-14 Weight 168.5 lbs 2019-05-05 Weight 167 lbs 2019-03-25 Weight 168.2 lbs 2018-10-14 Weight 166.6 lbs 2018-10-06 Weight 164.9 lbs 2018-07-01 Weight 167.6 lbs 2018-04-10 Weight 169.0 lbs 2018-04-03 Weight 167.0 lbs 2017-12-10 Weight 164.6 lbs 2017-09-10 Weight 167.5 lbs 2017-07-08 Weight 166.2 lbs 2017-06-11 Weight 169 lbs 2017-01-31 Weight 172.2 lbs 2016-09-11 Weight 169.4 lbs 2016-06-12 Weight 170.8 lbs 2016-05-22 Weight 162.0 lbs 2016-01-31 Weight 170.4 lbs 2015-07-12 Weight 167.8 lbs 2015-05-02 Weight 165.6 lbs 2014-08-03 Weight 163 lbs 2014-04-27 Weight 167.6 lbs 2014-04-20 Weight 169 lbs 2013-12-22 Weight 169.5 lbs 2013-08-18 Weight 169 lbs 2013-06-23 Weight 165 lbs 2013-05-25 Weight 165 lbs 2013-04-23 Weight 165 lbs 2013-04-21 Weight 159 lbs 2012-12-10 Weight 159 lbs 2012-08-12 Weight 167 lbs 2012-04-01 Weight 167 lbs 2011-12-24 Weight 167 lbs 2011-12-04 Weight 167 lbs 2011-11-26 Weight 168 lbs 2011-11-19 Weight 168 lbs 2011-11-15 Weight 168 lbs 2011-10-23 Weight 168 lbs 2011-10-09 Weight 168 lbs 2011-08-07 Weight 165 lbs 2011-08-06 Weight 174 lbs 2011-05-31 Weight 174 lbs 2011-02-28 Weight 174 lbs 2011-02-28 Weight 174 lbs 2011-02-08 Weight 174 lbs 2011-02-01 Weight 174 lbs 2011-02-01 Weight 174 lbs 2011-01-18 Weight 174 lbs 2010-12-25 Weight 174 lbs 2010-12-06 Weight 174 lbs 2010-10-10 Weight 175 lbs 2010-09-04 Weight 174 lbs 2010-08-02 Weight 174 lbs 2010-05-31 Weight 169 lbs 2009-12-12 Weight 169 lbs 2009-09-15 Weight 173 lbs 2009-07-20 Weight 175 lbs 2009-06-09 Weight 174 lbs 2009-03-30 Weight 174 lbs 2008-12-27 Weight N/A lbs 2008-08-23 Weight N/A lbs 2008-04-06 Weight N/A lbs 2007-04-16 Weight N/A lbs 2006-10-30 Weight N/A lbs 2006-08-26 BMI 32.27 kg/m2 2019-12-30 BMI 32.46 kg/m2 2019-12-09 BMI 32.15 kg/m2 2019-10-16 BMI 32.42 kg/m2 2019-07-14 BMI 32.36 kg/m2 2019-05-05 BMI 32.07 kg/m2 2019-03-25 BMI 32.31 kg/m2 2018-10-14 BMI 32.00 kg/m2 2018-10-06 BMI 31.67 kg/m2 2018-07-01 BMI 32.19 kg/m2 2018-04-10 BMI 32.46 kg/m2 2018-04-03 BMI 32.07 kg/m2 2017-12-10 BMI 31.61 kg/m2 2017-09-10 BMI 32.17 kg/m2 2017-07-08 BMI 31.92 kg/m2 2017-06-11 BMI 32.46 kg/m2 2017-01-31 BMI 33.07 kg/m2 2016-09-11 BMI 32.54 kg/m2 2016-06-12 BMI 32.80 kg/m2 2016-05-22 BMI 31.11 kg/m2 2016-01-31 BMI 32.73 kg/m2 2015-07-12 BMI 32.23 kg/m2 2015-05-02 BMI 31.81 kg/m2 2014-08-03 BMI 31.31 kg/m2 2014-04-27 BMI 32.19 kg/m2 2014-04-20 BMI 32.46 kg/m2 2013-12-22 BMI 32.55 kg/m2 2013-08-18 BMI 32.46 kg/m2 2013-06-23 BMI 31.69 kg/m2 2013-05-25 BMI 31.69 kg/m2 2013-04-23 BMI 31.69 kg/m2 2013-04-21 BMI 30.54 kg/m2 2012-12-10 BMI 30.54 kg/m2 2012-08-12 BMI 32.07 kg/m2 2012-04-01 BMI 32.07 kg/m2 2011-12-24 BMI 32.07 kg/m2 2011-12-04 BMI 32.07 kg/m2 2011-11-26 BMI 32.27 kg/m2 2011-11-19 BMI 32.27 kg/m2 2011-11-15 BMI 32.27 kg/m2 2011-10-23 BMI 32.27 kg/m2 2011-10-09 BMI 32.27 kg/m2 2011-08-07 BMI 31.69 kg/m2 2011-08-06 BMI 33.42 kg/m2 2011-05-31 BMI 33.42 kg/m2 2011-02-28 BMI 33.42 kg/m2 2011-02-08 BMI 33.42 kg/m2 2011-01-18 BMI 33.42 kg/m2 2010-12-06 BMI 32.87 kg/m2 2010-10-10 BMI 33.06 kg/m2 2010-09-04 BMI 32.87 kg/m2 2010-05-31 BMI 32.68 kg/m2 2009-07-20 BMI N/A kg/m2 2008-08-23 BMI N/A kg/m2 2008-04-06 BMI N/A kg/m2 2006-10-30 Temperature 98.3 degrees Fahrenheit 2019-12-30 Temperature 98.4 degrees Fahrenheit 2019-12-09 Temperature 98.5 degrees Fahrenheit 2019-11-17 Temperature 99.7 degrees Fahrenheit 2019-10-16 Temperature 97.7 degrees Fahrenheit 2019-07-14 Temperature 98.1 degrees Fahrenheit 2019-05-05 Temperature 98.1 degrees Fahrenheit 2019-03-25 Temperature 98.3 degrees Fahrenheit 2018-10-14 Temperature 98.4 degrees Fahrenheit 2018-10-06 Temperature 99.0 degrees Fahrenheit 2018-07-01 Temperature 98.3 degrees Fahrenheit 2018-04-10 Temperature 98.2 degrees Fahrenheit 2018-04-03 Temperature 98.7 degrees Fahrenheit 2018-02-25 Temperature 98.8 degrees Fahrenheit 2018-01-06 Temperature 98.6 degrees Fahrenheit 2017-12-10 Temperature 97.6 degrees Fahrenheit 2017-09-10 Temperature 98.7 degrees Fahrenheit 2017-07-08 Temperature 98.7 degrees Fahrenheit 2017-06-11 Temperature 97.7 degrees Fahrenheit 2017-01-31 Temperature 98.3 degrees Fahrenheit 2016-09-11 Temperature 97.8 degrees Fahrenheit 2016-06-12 Temperature 98.2 degrees Fahrenheit 2016-05-22 Temperature 99.2 degrees Fahrenheit 2016-01-31 Temperature 98.2 degrees Fahrenheit 2015-10-18 Temperature 99.3 degrees Fahrenheit 2015-07-12 Temperature 98.8 degrees Fahrenheit 2015-03-08 Temperature 98.8 degrees Fahrenheit 2014-11-23 Temperature 98.3 degrees Fahrenheit 2014-08-03 Temperature 97.8 degrees Fahrenheit 2014-04-20 Temperature 97.9 degrees Fahrenheit 2013-12-22 Temperature TYMPANIC:98.2 degrees Fahrenheit 2013-08 Temperature TYMPANIC:99.1 degrees Fahrenheit 2013-05 Temperature TYMPANIC:98.6 degrees Fahrenheit 2013-04 Temperature TYMPANIC:98.1 degrees Fahrenheit 2013-04 Temperature TYMPANIC:98.4 degrees Fahrenheit 2012-11 Temperature TYMPANIC:98.7 degrees Fahrenheit 2012-08 Temperature TYMPANIC:98.8 degrees Fahrenheit 2012-03 Temperature TYMPANIC:98.8 degrees Fahrenheit 2011-11 Temperature 97.9 degrees Fahrenheit 2011-08-06 Temperature 98.8 degrees Fahrenheit 2011-02-28 Temperature 98 degrees Fahrenheit 2011-02-08 Temperature 97.5 degrees Fahrenheit 2011-01-18 Temperature 98 degrees Fahrenheit 2011-01-01 Heart Rate 98 /min 2019-12-30 Heart Rate 79 /min 2019-12-09 Heart Rate 82 /min 2019-11-17 Heart Rate 90 /min 2019-10-16 Heart Rate 78 /min 2019-07-14 Heart Rate 80 /min 2019-05-05 Heart Rate 71 /min 2019-03-25 Heart Rate 89 /min 2018-10-14 Heart Rate 84 /min 2018-10-06 Heart Rate 78 /min 2018-07-01 Heart Rate 74 /min 2018-04-10 Heart Rate 88 /min 2018-04-03 Heart Rate 71 /min 2018-02-25 Heart Rate 74 /min 2018-01-06 Heart Rate 86 /min 2017-12-10 Heart Rate 80 /min 2017-09-10 Heart Rate 78 /min 2017-07-08 Heart Rate 72 /min 2017-06-11 Heart Rate 76 /min 2017-01-31 Heart Rate 74 /min 2016-09-11 Heart Rate 66 /min 2016-06-12 Heart Rate 72 /min 2016-05-22 Heart Rate 82 /min 2016-01-31 Heart Rate 75 /min 2015-10-18 Heart Rate 76 /min 2015-07-12 Heart Rate 76 /min 2015-05-02 Heart Rate 86 /min 2015-03-08 Heart Rate 82 /min 2014-11-23 Heart Rate 76 /min 2014-08-03 Heart Rate 80 /min 2014-04-27 Heart Rate 76 /min 2014-04-20 Heart Rate 68 /min 2013-12-22 Heart Rate 78 /min 2013-08-18 Heart Rate 61 /min 2013-06-23 Heart Rate 69 /min 2013-05-25 Heart Rate 72 /min 2013-04-23 Heart Rate 80 /min 2013-04-21 Heart Rate 82 /min 2012-12-10 Heart Rate 75 /min 2012-08-12 Heart Rate 73 /min 2012-04-01 Heart Rate 80 /min 2011-12-24 Heart Rate 63 /min 2011-12-04 Heart Rate 80 /min 2011-11-26 Heart Rate 80 /min 2011-11-19 Heart Rate 80 /min 2011-11-15 Heart Rate 80 /min 2011-10-23 Heart Rate 76 /min 2011-10-09 Heart Rate 80 /min 2011-08-07 Heart Rate 69 /min 2011-08-06 Heart Rate 68 /min 2011-05-31 Heart Rate 78 /min 2011-03-15 Heart Rate 76 /min 2011-03-06 Heart Rate 78 /min 2011-02-28 Heart Rate 78 /min 2011-02-28 Heart Rate 72 /min 2011-02-08 Heart Rate 80 /min 2011-02-01 Heart Rate 80 /min 2011-02-01 Heart Rate 75 /min 2011-01-18 Heart Rate 80 /min 2011-01-01 Heart Rate 80 /min 2010-12-25 Heart Rate 120/70 /min 2010-12-06 Heart Rate 68 /min 2010-10-10 Heart Rate 80 /min 2010-09-04 Heart Rate 80 /min 2010-08-02 Heart Rate 60 /min 2010-05-31 Heart Rate 80 /min 2009-09-15 Heart Rate 80 /min 2009-07-20 Heart Rate 76 /min 2009-06-09 Heart Rate 80 /min 2008-12-27 Heart Rate N/A /min 2008-08-23 Heart Rate N/A /min 2008-04-06 Heart Rate N/A /min 2007-04-16 Heart Rate N/A /min 2006-10-30 Heart Rate N/A /min 2006-08-26 Heart Rate N/A /min 2006-04-30 Heart Rate N/A /min 2006-04-22 Respiratory Rate 17 /min 2019-12-30 Respiratory Rate 18 /min 2019-12-09 Respiratory Rate 18 /min 2019-11-17 Respiratory Rate 20 /min 2019-10-16 Respiratory Rate 18 /min 2019-07-14 Respiratory Rate 18 /min 2019-05-05 Respiratory Rate 18 /min 2019-03-25 Respiratory Rate 18 /min 2018-10-14 Respiratory Rate 20 /min 2018-10-06 Respiratory Rate 18 /min 2018-07-01 Respiratory Rate 18 /min 2018-04-10 Respiratory Rate 16 /min 2018-04-03 Respiratory Rate 16 /min 2018-02-25 Respiratory Rate 16 /min 2018-01-06 Respiratory Rate 16 /min 2017-12-10 Respiratory Rate 18 /min 2017-09-10 Respiratory Rate 16 /min 2017-07-08 Respiratory Rate 18 /min 2017-06-11 Respiratory Rate 18 /min 2017-01-31 Respiratory Rate 16 /min 2016-09-11 Respiratory Rate 16 /min 2016-06-12 Respiratory Rate 17 /min 2016-05-22 Respiratory Rate 18 /min 2016-01-31 Respiratory Rate 18 /min 2015-10-18 Respiratory Rate 18 /min 2015-07-12 Respiratory Rate 16 /min 2015-05-02 Respiratory Rate 16 /min 2015-03-08 Respiratory Rate 18 /min 2014-11-23 Respiratory Rate 18 /min 2014-08-03 Respiratory Rate 20 /min 2014-04-27 Respiratory Rate 16 /min 2014-04-20 Respiratory Rate 18 /min 2013-12-22 Respiratory Rate 18 /min 2013-08-18 Respiratory Rate 16 /min 2013-06-23 Respiratory Rate 18 /min 2013-05-25 Respiratory Rate 20 /min 2013-04-23 Respiratory Rate 20 /min 2013-04-21 Respiratory Rate 18 /min 2012-12-10 Respiratory Rate 18 /min 2012-08-12 Respiratory Rate 16 /min 2012-04-01 Respiratory Rate 18 /min 2011-12-04 Respiratory Rate 18 /min 2011-11-26 Respiratory Rate 18 /min 2011-11-19 Respiratory Rate 80 /min 2011-11-15 Respiratory Rate 18 /min 2011-10-23 Respiratory Rate 18 /min 2011-10-09 Respiratory Rate 16 /min 2011-08-07 Respiratory Rate 16 /min 2011-08-06 Respiratory Rate 16 /min 2011-05-31 Respiratory Rate 18 /min 2011-03-15 Respiratory Rate 18 /min 2011-03-06 Respiratory Rate 18 /min 2011-02-28 Respiratory Rate 18 /min 2011-02-28 Respiratory Rate 16 /min 2011-02-08 Respiratory Rate 16 /min 2011-02-01 Respiratory Rate 16 /min 2011-02-01 Respiratory Rate 18 /min 2011-01-18 Respiratory Rate 18 /min 2011-01-01 Respiratory Rate 18 /min 2010-12-25 Respiratory Rate 16 /min 2010-12-06 Respiratory Rate 18 /min 2010-10-10 Respiratory Rate 18 /min 2010-09-04 Respiratory Rate 16 /min 2010-08-02 Respiratory Rate 18 /min 2010-05-31 Respiratory Rate 18 /min 2009-07-20 Respiratory Rate 18 /min 2009-06-09 Respiratory Rate 16 /min 2008-12-27 Respiratory Rate N/A /min 2008-08-23 Respiratory Rate N/A /min 2008-04-06 Respiratory Rate N/A /min 2006-04-30 Respiratory Rate N/A /min 2006-04-22 Oximetry 97 % 2019-12-30 Oximetry 97 % 2019-12-09 Oximetry 97 % 2019-11-17 Oximetry 93 % 2019-07-14 Oximetry 98 % 2019-05-05 Oximetry 93 % 2019-03-25 Oximetry 95 % 2018-10-14 Oximetry 95 % 2018-07-01 Oximetry 98 % 2018-04-10 Oximetry 96 % 2018-04-03 Oximetry 97 % 2018-02-25 Oximetry 97 % 2018-01-06 Oximetry 95 % 2017-12-10 Oximetry 97 % 2017-09-10 Oximetry 97 % 2017-07-08 Oximetry 96 % 2017-06-11 Oximetry 98 % 2017-01-31 Oximetry 95 % 2016-09-11 Oximetry 98 % 2016-06-12 Oximetry 96 % 2016-05-22 Oximetry 96 % 2016-01-31 Oximetry 94 % 2015-10-18 Oximetry 97 % 2015-07-12 Oximetry 95 % 2015-05-02 Oximetry 97 % 2015-03-08 Oximetry 94 % 2014-11-23 Oximetry 94 % 2014-08-03 Oximetry 96 % 2014-04-27 Oximetry 97 % 2014-04-20 Oximetry 97 % 2013-12-22 Oximetry 96 % 2013-08-18 Oximetry 98 % 2013-06-23 Oximetry 97 % 2013-05-25 Oximetry 97 % 2013-04-23 Oximetry 98 % 2013-04-21 Oximetry 98 % 2012-12-10 Oximetry 97 % 2012-08-12 Oximetry 96 % 2012-04-01 Oximetry 93 % 2011-12-04 Oximetry 97 % 2011-10-09 Oximetry 98 % 2011-08-07 Oximetry 96 % 2011-08-06 Oximetry 95 % 2011-02-28 Oximetry 96 % 2011-02-08 Oximetry 97 % 2011-01-18 Oximetry N/A % 2008-04-06 Oximetry N/A % 2006-10-30 Oximetry N/A % 2006-04-30 Blood pressure systolic 187 mm Hg 2019-12-30 Blood pressure diastolic 99 mm Hg 2019-12-30 MEDICATIONS Medication Instructions Dosage Frequency Start End Duration Statu s Date Date oxyCODONE HCl Orally q6h prn 1 tab 03 Dec, 5 day(s) No t-Takin 5 MG for pain 2019 g -[facility] for complete [facility] Nap[facility]en 500 Orally every 12 1 tablet 12h Ac tive MG hrs with food or milk as needed HYDROcodone-gu as directed Activ e aiFENesin 5-300 MG PROCEDURES Procedure Date Ordered Result Body Site ACUPUNCT W/O STIMUL ADDL 15M Jul 21, 2007 INSERT PESSARY/OTHER DEVICE Dec 30, 2019 INSERT PESSARY/OTHER DEVICE Sep 10, 2017 ACUP.EACH ADD 15 MIN (24696) Dec 29, 2009 [facility]:NEUROSTIMULATOR ([id number]) February 01, 2011 INSERT PESSARY/OTHER DEVICE January 19, 2009 DEBRIDE NAIL, 1-5 Jul 14, 2019 ACUP.EACH ADD 15 MIN (83000) March 11, 2008 ACUPUNCT W/O STIMUL ADDL 15M Dec 12, 2006 ACUPUNCT W/O STIMUL ADDL 15M April 22, 2006 ACUPUNCT W/O STIMUL ADDL 15M June 03, 2006 ACUPUNCT W/O STIMUL ADDL 15M Jul 29, 2006 ACUPUNCT W/O STIMUL ADDL 15M Sep 04, 2006 ACUPUNCT W/O STIMUL ADDL 15M Oct 24, 2006 ACUPUNCT W/O STIMUL ADDL 15M January 24, 2007 ACUPUNCT W/O STIMUL ADDL 15M March 06, 2007 ACUPUNCT W/O STIMUL ADDL 15M April 30, 2007 TRIMMING DYSTROPHIC NAILS ANY # Dec 10, 2012 ACUPUNCT W/O STIMUL 15 MIN Sep 11, 2007 TRIMMING DYSTROPHIC NAILS ANY # Dec 22, 2013 DEBRIDE NAIL, 6 OR MORE Oct 18, 2015 DEBRIDE NAIL, 6 OR MORE Jul 12, 2015 ACUPUNCT W/O STIMUL ADDL 15M Oct 16, 2007 ACUPUNCT W/O STIMUL ADDL 15M Dec 11, 2007 ACUPUNCT W/O STIMUL ADDL 15M February 12, 2008 ACUP.EACH ADD 15 MIN (49150) May 27, 2008 ACUP.EACH ADD 15 MIN (83177) Jul 15, 2008 ACUP.EACH ADD 15 MIN (79993) Aug 19, 2008 ACUP.EACH ADD 15 MIN (95199) Nov 23, 2008 ACUP.EACH ADD 15 MIN (15854) Dec 30, 2008 INSERT PESSARY/OTHER DEVICE April 10, 2018 ACUP.INIT.15 MIN (03220) Jul 15, 2008 ACUP.INIT.15 MIN (67425) May 27, 2008 ACUPUNCT W/O STIMUL 15 MIN February 12, 2008 ACUPUNCT W/O STIMUL 15 MIN Dec 11, 2007 ACUPUNCT W/O STIMUL 15 MIN Oct 16, 2007 ACUPUNCT W/O STIMUL 15 MIN April 30, 2007 INSERT PESSARY/OTHER DEVICE March 30, 2009 TRIMMING DYSTROPHIC NAILS ANY # April 30, 2006 TRIMMING DYSTROPHIC NAILS ANY # Oct 30, 2006 TRIMMING DYSTROPHIC NAILS ANY # April 16, 2007 Tob non-user ([id number]) May 05, 2019 Intake-dx eval w medical management (00586) Nov 17, 2019 ACUPUNCT W/O STIMUL 15 MIN March 06, 2007 ACUPUNCT W/O STIMUL 15 MIN January 24, 2007 ACUPUNCT W/O STIMUL 15 MIN Oct 24, 2006 ACUPUNCT W/O STIMUL 15 MIN Sep 04, 2006 ACUPUNCT W/O STIMUL 15 MIN Jul 29, 2006 ACUPUNCT W/O STIMUL 15 MIN June 03, 2006 ACUPUNCT W/O STIMUL 15 MIN April 22, 2006 ACUPUNCT W/O STIMUL 15 MIN Dec 12, 2006 ACUP.INIT.15 MIN (24110) March 11, 2008 ACUP.INIT.15 MIN (99738) Dec 29, 2009 [facility]:NEUROSTIMULATOR ([id number]) March 27, 2011 [facility]ENT[facility]:UROLOGY (neurostimulator) [id number] January 25, 2011 [facility]:UROLOGY (neurostimulator) [id number] January 18, 2011 [facility]ENT[facility]:UROLOGY (neurostimulator) [id number] January 12, 2011 [facility]:NEUROSTIMULATOR ([id number]) February 22, 2011 [facility]:NEUROSTIMULATOR ([id number]) March 06, 2011 [facility]:NEUROSTIMULATOR ([id number]) March 15, 2011 TRIMMING DYSTROPHIC NAILS ANY # Sep 26, 2007 [facility]ENT[facility]:UROLOGY (neurostimulator) [id number] Dec 25, 2010 [facility]:UROLOGY (neurostimulator) [id number] Jan 01, 2011 ACUPUNCT W/O STIMUL 15 MIN Jul 21, 2007 ACUPUNCT W/O STIMUL 15 MIN January 14, 2008 ACUPUNCT W/O STIMUL ADDL 15M January 14, 2008 TRIMMING DYSTROPHIC NAILS ANY # April 06, 2008 IMPRESSION CAST FOOT-PRACTITIONER April 23, 2013 [facility]:UROPLASTY LEAD ([id number]) February 08, 2011 DEBRIDE NAIL, 6 OR MORE Sep 11, 2016 INSERT PESSARY/OTHER DEVICE May 31, 2011 INSERT PESSARY/OTHER DEVICE February 28, 2011 INSERT PESSARY/OTHER DEVICE Aug 02, 2010 INSERT PESSARY/OTHER DEVICE May 31, 2010 TRIMMING DYSTROPHIC NAILS ANY # Sep 12, 2009 TRIMMING DYSTROPHIC NAILS ANY # January 30, 2010 INSERT PESSARY/OTHER DEVICE Dec 12, 2009 INSERT PESSARY/OTHER DEVICE January 25, 2010 TRIMMING DYSTROPHIC NAILS ANY # May 30, 2010 TRIMMING DYSTROPHIC NAILS ANY # Aug 25, 2008 Med Rec done ([id number]) May 05, 2019 [facility]ENT[facility]:UROLOGY-UROPLASTY LEAD ([id number]) Dec 25, 2010 ACUP.INIT.15 MIN (75322) June 09, 2009 [facility]ENT[facility]:UROLOGY-UROPLASTY LEAD ([id number]) Jan 01, 2011 [facility]:UROLOGY-UROPLASTY LEAD ([id number]) January 12, 2011 [facility]GENT[facility]:UROPLASTY LEAD ([id number]) February 22, 2011 [facility]:UROPLASTY LEAD ([id number]) March 06, 2011 POD-FOOT INSERT,EA (34251) April 23, 2013 [facility]:UROPLASTY LEAD ([id number]) March 15, 2011 [facility]ENT[facility]:UROPLASTY LEAD ([id number]) March 27, 2011 INSERT PESSARY/OTHER DEVICE March 29, 2010 TRIMMING DYSTROPHIC NAILS ANY # January 09, 2011 URGENTPC:UROLOGY-UROPLASTY LEAD ([id number]) January 25, 2011 INSERT PESSARY/OTHER DEVICE Dec 06, 2010 URGENTPC:UROLOGY-UROPLASTY LEAD ([id number]) January 18, 2011 INSERT PESSARY/OTHER DEVICE Sep 15, 2009 ACUP.INIT.15 MIN (44858) Sep 06, 2011 INSERT PESSARY/OTHER DEVICE June 09, 2009 ACUP.INIT.15 MIN (30728) Oct 09, 2011 ACUP.EACH ADD 15 MIN (45313) June 09, 2009 ACUP.INIT.15 MIN (77136) May 31, 2011 ACUP.EACH ADD 15 MIN (20618) Oct 14, 2008 ACUP.INIT.15 MIN (41010) Dec 06, 2010 ACUP.EACH ADD 15 MIN (50865) Sep 16, 2008 ACUP.INIT.15 MIN (95883) Aug 02, 2010 POD-HEEL LIFT (14405) Jul 01, 2018 ACUP.INIT.15 MIN (72567) May 31, 2010 ACUP.INIT.15 MIN (62882) March 29, 2010 PESSARY RUBBER ANY TYPE April 03, 2018 ACUP.INIT.15 MIN (00789) Sep 15, 2009 DEBRIDE NAIL, 6 OR MORE January 31, 2017 DEBRIDE NAIL, 6 OR MORE January 31, 2016 TRIMMING DYSTROPHIC NAILS ANY # Aug 18, 2013 PESSARY RUBBER ANY TYPE Nov 26, 2011 ACUP.INIT.15 MIN (84063) Jul 20, 2009 PESSARY RUBBER ANY TYPE February 01, 2011 ACUP.INIT.15 MIN (17548) Dec 30, 2008 PESSARY RUBBER ANY TYPE Dec 27, 2008 ACUP.INIT.15 MIN (83804) Nov 23, 2008 PESSARY RUBBER ANY TYPE Dec 30, 2019 ACUP.INIT.15 MIN (85135) Aug 19, 2008 INSERT PESSARY/OTHER DEVICE May 05, 2019 ACUP.EACH ADD 15 MIN (82497) Jul 20, 2009 UR[facility]GENTPC:UROPLASTY LEAD ([id number]) February 01, 2011 ACUP.EACH ADD 15 MIN (67944) Sep 15, 2009 DEBRIDE NAIL, 1-5 February 25, 2018 INSERT PESSARY/OTHER DEVICE Jan 06, 2018 DEBRIDE NAIL, 1-5 Oct 15, 2017 INSERT PESSARY/OTHER DEVICE Jul 08, 2017 DEBRIDE NAIL, 6 OR MORE Nov 23, 2014 DEBRIDE NAIL, 6 OR MORE May 22, 2016 HEEL LIFT April 21, 2013 ACUPUNCT W/O STIMUL ADDL 15M Sep 11, 2007 ACUP.INIT.15 MIN (36094) February 28, 2011 ACUP.INIT.15 MIN (75949) April 04, 2011 ACUP.INIT.15 MIN (91644) Aug 07, 2011 ACUP.INIT.15 MIN (65004) April 12, 2008 ACUP.INIT.15 MIN (78431) February 10, 2009 ACUP.INIT.15 MIN (66027) March 30, 2009 ACUP.INIT.15 MIN (51708) January 25, 2010 ACUP.EACH ADD 15 MIN (64062) March 29, 2010 ACUP.EACH ADD 15 MIN (40336) May 31, 2010 ACUP.EACH ADD 15 MIN (43247) Aug 02, 2010 TRIMMING DYSTROPHIC NAILS ANY # Aug 06, 2011 ACUP.EACH ADD 15 MIN (35372) Dec 06, 2010 TRIMMING DYSTROPHIC NAILS ANY # April 17, 2011 ACUP.EACH ADD 15 MIN (17391) May 31, 2011 ACUP.EACH ADD 15 MIN (53698) Oct 09, 2011 ACUP.EACH ADD 15 MIN (03703) Sep 06, 2011 INSERT PESSARY/OTHER DEVICE Oct 10, 2010 WET PREP/PINA IN OFFICE ([facility] code [id number]) Nov 19, 2011 INSERT PESSARY/OTHER DEVICE Dec 10, 2017 ACUP.EACH ADD 15 MIN (92655) April 12, 2008 INSERT PESSARY/OTHER DEVICE May 02, 2015 ACUP.EACH ADD 15 MIN (94281) February 10, 2009 ACUP.EACH ADD 15 MIN (29199) March 30, 2009 ACUP.EACH ADD 15 MIN (63000) January 25, 2010 ACUP.EACH ADD 15 MIN (80946) February 28, 2011 ACUP.EACH ADD 15 MIN (96658) April 04, 2011 ACUP.EACH ADD 15 MIN (54671) Aug 07, 2011 Hgb fingerstick (Hemocue) (g code [id number]) Aug 23, 2008 INSERT PESSARY/OTHER DEVICE Jul 20, 2009 ACUP.INIT.15 MIN (13060) Oct 14, 2008 ACUP.INIT.15 MIN (56543) Sep 16, 2008 UROURGENTPC:NEUROSTIMULATOR ([id number]) February 08, 2011 INSERT PESSARY/OTHER DEVICE Dec 30, 2008 MAMMOGRAM, SCREENING April 25, 2006 UROURGENTPC:NEUROSTIMULATOR ([id number]) February 28, 2011 UROURGENTPC:NEUROSTIMULATOR ([id number]) February 15, 2011 INSERT PESSARY/OTHER DEVICE Dec 27, 2008 INSERT PESSARY/OTHER DEVICE February 01, 2011 INSERT PESSARY/OTHER DEVICE April 04, 2011 INSERT PESSARY/OTHER DEVICE Aug 07, 2011 INSERT PESSARY/OTHER DEVICE Nov 26, 2011 DEBRIDE NAIL, 6 OR MORE Aug 03, 2014 DEBRIDE NAIL, 1-5 Jun 11, 2017 DEBRIDE NAIL, 6 OR MORE March 08, 2015 UROURGENTPC:UROPLASTY LEAD ([id number]) February 28, 2011 TRIMMING DYSTROPHIC NAILS ANY # Jan 04, 2009 INSERT PESSARY/OTHER DEVICE April 03, 2018 UROURGENTPC:UROPLASTY LEAD ([id number]) February 15, 2011 REMOVAL INGROWN TOENAIL Jul 01, 2018 INSERT PESSARY/OTHER DEVICE Oct 09, 2011 RESULTS Name Result Date Reference Range MG Mammo Screening 2018-11-24 Image Accessible Negative Cat 1 MG Mammo Screening 2014-09-27 Image Accessible MG Mammo Screening 2013-09-21 Image Accessible CYTO: PAP SMEAR-Diagnostic (no HPV) RESULT UA DIPSTICK ONLY-DIAGNOSTIC Color yellow Clarity clear Specific Baker 1.025 Glucose. neg Bilirubin neg Ketones neg Blood trace PH 6.0 Protein neg Urobilinogen 0.2 Nitrite neg Leukocytes neg UA-COLONY COUNT ONLY 2011-01-01 US: Breast, left CPT-09438 Mammo: Screening Mammo: Screening US: Breast, left CPT-20669 Mammo: Limited-DIAGNOSTIC REASON FOR VISIT pessary out, Pessary consult, please contact patient, d/c fentanyl, nail/footcare fu, referral done,son called to [facility] pt in [place] doing rehab will call back to r.s 11/05/19 [facility], 6 month f/u, son called to [facility] pt is in [place] doing rehab, 11/05/2019 SANDRA , new patient rm [address], Teresa W ingadmit for back pain has hx major depression, self medicating with narcotics preparing pt for homelives alone may need spinal surgery in the future, med chart update, [facility], admit, footcare/nailcare F/U, Referral Done, Patient was last seen on 03/25/19 numerous concerns, corn right lateral fourth toe,dry skin, naili care and blister in the plantar left arch., Heel lift dispensed at last appointment., pt states that her feet are doing okay , pt states that she is her efor nail care , pt states she that her corns are all gone , 6 month f/u, Nail care, foot care, followup, Referral done, Patient was last seen on 10/14/18 numerous concerns, corn right lateral fourth toe, dry skin, naili care and blister in the plantar left arch., Patient saw her PCP yesterday, BP high, provider wasn't happy. Patient states she has been having some dizzy spells., Patient has taken some naproxen this morning., Patienthas cancelled last appt due to stomach bug., Patient has no new concerns today JL, 4 month follow up, Nailcare, corn, blister, 3.5 month follow up , heel lift dispensed at last appt has been helping., Nailcare, corn, blister, 6 month f/u, Medications reviewed w/pt,med. list is correct. BLD, pt due formammp would like you to order. BLD, 6 MONTH F/U, 4 month f/u , Pt c/o right arch dropping. Pt statesshe needs higher heel lift in left shoe. Brings inserts to be checked out. , Nailcare., 1 week f/u, Medications reviewed w/pt,med. list is correct-sh, bleeding, pessary issues, bleeding -see notes 04/02, 4 month f/u , Referral Done, Pt is here today for Nailcare, Pt states she has a painful spot on Dusty foot where the corn used to be , 4 month f/u , f/u, bleeding/pessery is out. BL, 4 mo f/u , Pt is here today for Nailcare- No other concerns, spotting returned, Medications reviewed w/pt,med. list iscorrect, check pessary, pt has had a browinish discharge, pt feels it is from the pessary., vaginal bleeding, 4 mo f/u , Pt c/o pain in left 5th toe. Uses lambswool between Left 4th and 5th toes., Footcare, Referral Done, pt is here for a foot evaluation, Footcare, Referral Done, Footcare, Referral Done, Ciclopirox Olamine Solution, Footcare, Referral Done, Medications reviewed w/pt,med. list is correct -KMM, Pt is here for footcare/callus care of her right great toe., Pt states that she had a blister between her left 4th & 5th toes last week., pessary check, Medications reviewed w/pt,med. listis correct-sh, pt just came from chiropractor office, hurt her back the other day, Footcare, Referral Done, Medications reviewed w/pt,med. list is correct -KMM, Pt is here for routine footcare., Footcare, Referral Done, Pt is here for routine footcare, no other concerns today. JL, 3 1/2 mo f/u, Referral Done, Pt here for routine footcare. JL, nailcare, Referral Done, pt ede'd 06/17 KB, COMPREV, 3 month f/u, Referral Done, pt states that she has a spot she would like you to look at on the top of her big left toe, pt would also like graciela more toe foam, 3 month f/u, Referral Done, Pt states that fourthtoe on right foot is very dry SB, nailcare, pt has no concerns today, PFR#3, PFR #2- by nurse, PFR #1- by nurse, PFR#2- by nurse, PFR #1- by nurse, annual [employer] exam, NAILCARE/ ORTHOTICS, Nailcare, Patient states she has had a hip replacement since she was last seen. , Medications reviewed w/pt,med. list is correct - DG, nailcare pymt, Nailcare, pt states that feet are really dry and would like some lotion applied to them, Medications reviewed w/pt,med. list is correct--KW, nailcare pymt, nailcare, Patient states that she has no concerns at this visit, Medications reviewed w/pt,med. list is correct -IL, annual, pessary check., Orthotic Dispense, Orthotic dispense, Patient states that her feet are still causing her pain, she thinks that she may have banged her right 1st toe and it is causing her some pain, Medications reviewed w/pt,med. list is correct -IL, Missed appointment, Missed Appt w/ HG, Orthotic dispense, Orthotics, Orthotic casting, No other concerns at this visit , Meds reviewed by pt,no longer taking:Fish Oil, Citalopram, Multivitamin -IL, Nailcare, Meds reviewed by pt,no longer taking: Multivitamin, Citallopram, Fish Oil - IL, Patient has not other concerns at this visit, NAILCARE-office ede'd by pt 01/06 AP, referral, Nailcare, NAILCARE, Meds reviewed by pt,no longer taking: hydrocodone-tp, Patient paid for Nailcare, nailcare, no other concerns, Medications reviewed w/pt,med. list is correct (CASSANDRA), Nailcare-r/s'd by pt 07/21, nailcare, Medications reviewed w/pt,med. list is correct - nab, annual [employer] (without pap), acup est, pessary, pt is due for annual minus pap, nailcare, pes priscilla, pessary, pessary, pessary, Vaginal discharge. Pt is concerned about discharge from vagina. It has stopped today, but has persisted since last change of pessary. She also states she has been started on hydrocodone and sertratline, dose unknown, but added to med list... will clarify on Mon when wesee her., refill, bleeding, acup est med list updated. darvocet removed per pt. ( pcp non- Weeks), pessary, some increased problems with incontinence. darvocet removed per pt. ( pcp non- Weeks), acup est, acup est, f/u pessary, nailcare, Medications reviewed w/pt,med. list is correct, but some change in vitamin dosages - nab, Refill NNECP, acup est, f/u pessary, Nailcare, Medications reviewed w/pt,med. list is correct-RMA, pt states no new concerns regarding her feet, acpt, pessary, 14th tx, acupt, pessary, 13 th tx ? uroflow to do. UROL:URGENT PC, Medications reviewed w/pt,med. list is correct, Urgent PC, gb. UROL:URGENT PC, urgent pc, acupt, and pessary appts., Urgent PC, URGENT PC. UROL:URGENT PC, pessary, acup, acupt, acupt, pessary, pessary, urgent PC. UROL:URGENT PC, acupt, pessary, urgent pc, urgent pc. UROL:URGENT PC, urgent PC. UROL:URGENT PC, urgent pc, Medications reviewed w/pt,med. list is correct - SFP. UROL:URGENT PC, appt change 02/28, Urgent PC 6th tx. UROL:URGENT PC, Pt was to come in for acupuncture, but the prolapse was bothering her more. [employer] visit done., Urgent PC 5th tx. UROL:URGENT PC, urgent pc, pt states that she has been bleeding for about 4 weeks, Medications reviewed w/pt,med. list is correct - CMK, pt states she is using 2 pads a day, pt is getting up 1time a night. goes to bed around 11:30 doesn't get up until about 5:30, pt states she feels like shedoesn't have the urge to go as much, . UROL:URGENT PC, 4 tx urgent pc, Pt would like an appt with Monserrat for urgent pc, Urgent PC 3rd treatment. UROL:URGENT PC, nailcare, Medications reviewed w/pt,med. list is correct - oneil, 3rd urgent pc tx, PMB, QNS for u/a, 2nd urgent pc. UROL:URGENT PC, pessary, urgent pc. UROL:URGENT PC, pt needs appt for urgent urogyn, acupt, pessary slips at times, urinary urgency, biotin pt takes, nailcare, Meds reviewed, new meds: Co Q 10, D3, Fish Oil - oneil, pessary, no changes in meds, exept pt was on azithromax and finished it... for a cold. cn, reschedule appt's, talk toCN, pessary / pt sick, acup est / pt sick, nailcare / pt rs, comp pe, 2 mos f/u pessary, ACUP, f/u pessary, pt is not taking Vit B now., acup f/u, footcare, pt states no concerns, Medications reviewed w/pt,med. list is correct, pessary, acup est, refill on foot rx, nailcare / pt rs, nailcare, acupt, pessary, acupt, pessary, pessary, acup est, nail care, nailcare / pt rescheduled / , pessary change, pessary, acup, needs appts in 6 weeks, pessary, acup est, nailcare, pessary, Call about billing issue, needs acup appt in 4-5 wks, pessary/ pt has appointment ot see Dr Briseno about mammo., ACUP EST, problem getting pessary out, pessary, pessary f/u, nailcare, nailcare - office r/s, pessary, ACUPE EST, pessary fell out, PESSARY, nailcare, annual pt had recent mammo, ACUP EST, ACUPE EST, acup est, f/u, NAILCARE, needs another acup appt in a month, needs another accup appt in a month,reschedule, need acup est appt 1 month, ACUP EST, ACUP EST/RESCHEDULED, NAILCARE, acupuncture, annual, accup est, can she be seen 3:45 to 5 pm 07/21 for accpt?- paperwork day., pls call to discuss [phone], MAMMO - for CN, pain, NAIL CARE, NAILCARE, ACUPUNCTURE EST PER LN, pain, ACCUPUNCTURE PER CN, accup appt, needs acup appt/late afternoon, Refill on Triamcinolone Cream, NAILCARE, acppt, PAIN,Nailcare, pain, COMP REV, ACCU, annual, needs ultrasound and spot mag , ACUPUNTURE, cancel appt. , Nailcare, PAIN, accupuncture, ACUP EST Insurance Providers [facility] Member Patient Patient Patient Patient Patient Subscriber Subscriber Subscriber Group Insurance Plan Plan Plan Plan ID Relationship Address Phone Name Date of ID Name Date of No Type Insurance Insurance Insurance Coverage to Subscriber Address Phone Name Dates SELF PAY [address] STREET SELF PAY self [place] [id number] [place] [address] [place] SELF [place]Y [place] [id number] [place] [address] S[address] SELF [place]Y [place] [id number] [place] [address] S[address] SELF [place]Y [place] [id number] [place] [address] S[address] SELF [place]Y [place] [id number] [place] [address] S[address] SELF [place]Y [place] [id number] [place] [address] S[address] SELF [place]Y self [place] [id number] [place] [address] SELF [place]Y [place] [id number] OTHER VELOZ [facility] [address] SELF [place] [id number] [place] [address] S[address] SELF [place]Y [place] [id number] [place] [address] [place] SELF [place]Y [place] [id number] [place] [address] [place] SELF [place]Y [place] [id number] AFTER [place] [address] S[address] SELF [place]Y [place] [id number] [place] [address] SELF [place]Y [place] [id number] [place] [address] SELF [place] [id number] [place] [address] SELF [place]Y [place] [id number] [place] [address] SELF [place]Y [place] [id number] [place] [address] INSURANCE S-MEDICOMP [phone] S-MEDICOMP self [place] [id number] [place] [address] OF [facility] [address] [place] [address] SELF [place] [id number] [place] [address] SELF [place] [id number] [place] [address] SELF [place] [id number] [place] [address] SELF [place] [id number] [place] [address] SELF [place] [id number] [place] [address] SELF [place] [id number] [place] [address] SELF [place]Y [place] [id number] [place] [address] INSURANCE S-MEDICOMP [phone] S-MEDICOMP self [place] [id number] [place] [address] OF [facility] [address] [place] [address] S-MEDICOMP [phone] S-MEDICOMP self [place] [id number] [place] [address] OF [facility] [address] [place] [address] SELF [place]Y [place] [id number] [place] [address] SELF [place]Y [place] [id number] [place] [address] SEL[place] [id number] [place] [address] SEL[place] [id number] [place] [address] SEL[place] [id number] [place] [address] SEL[place] [id number] [place] [address] SEL[place] [id number] AFTER [place] [address] SEL[place] [id number] AFTER [place] [address] SELF [place]Y [place] [id number] [place] [address] SEL[place]Y [place] [id number] [place] [address] SELF [place]Y [place] [id number] [place] [address] SELF [place]Y self [place] [id number] [place] [address] SELF [place]Y self [place] [id number] [place] [address] SELF [place]Y self [place] [id number] [place] [address] SELF [place]Y self [place] [id number] AFTER [place] [address] SELF [place]Y self [place] [id number] [place] [address] SELF [place]Y [place] [id number] [place] [address] SELF [place]Y self [place] [id number] [place] [address] SELF [place]Y self [place] [id number] AFTER [place] [address] SELF [place]Y [place] [id number] [place] [address] SELF [place]Y self [place] [id number] [place] [address] SELF [place]Y [place] [id number] [place] [address] INSURANCE MEDICARE [address] MEDICARE self [place] [id number] [facility] [id number] SELF PAY [address]RE[address] SELF [place]Y self [place] [id number] [place] [address] SELF [place]Y [place] [id number] [place] [address] SELF [place]Y [place] [id number] [place] [address] SELF [place]Y [place] [id number] [place] [address] SELF [place]Y [place] [id number] [place] [address] SELF [place]Y self [place] [id number] [place] [address] SELF [place]Y self [place] [id number] [place] [address] [place] SELF PAY self [place] [id number] [place] [address] SELF [place]Y self [place] [id number] [place] [address] SELF [place]Y [place] [id number] [place] [address] SELF [place]Y self [place] [id number] [place] [address] INSURANCE MEDICARE [address] MEDICARE self [place] [id number] [facility] [id number]
[2022-11-06 12:53] LABS: HCT 31.3 % (36.0-46.0); HGB 8.8 g/dL (11.2-15.7); MCH 20.3 pg (27.0-33.0); MCHC 28.1 % (32.0-36.0); MCV 72 fL (80-95); MPV 9.4 fL (8.0-11.0); Platelet Count 374 10^3/uL (130-400); RBC 4.33 10^6/uL (3.93-5.22); RDW 19.3 % (11.7-14.6); RDW-SD 49.5 fL; WBC 6.47 10^3/uL (4.4-10.8)
== END 2022-11-06 12:37 | disposition home or self-care (01) ==
LOC: LBN 12:36
PROVIDERS: PCP Family Medicine; Visit Provider Family Medicine
DX: Z86.16 Personal history of COVID-19 (principal)
CPT/HCPCS: 85027

== ENCOUNTER 2022-11-15 16:18 | Outpatient (REF) | payer MEDICARE, BC, SELFPAY ==
[2022-11-15 15:20] LABS: Absolute Eosinophil Count 0.14 10^3/uL (0.0-0.7); MCV 72 fL (80-95); Reticulocyte 1.6 % (0.5-2.4)
[2022-11-15 15:22] LABS: Abs Immature Grans 0.03 10^3/uL (0.0-0.06); Absolute Basophil Count 0.07 10^3/uL (0.0-0.2); Absolute Lymphocyte Count 1.48 10^3/uL (1.2-3.4); Absolute Monocyte Count 0.41 10^3/uL (0.1-0.8); Absolute Neutrophil Count 4.45 10^3/uL (1.2-6.7); Basophils % 1.1; Eosinophils % 2.1; HCT 34.5 % (36.0-46.0); HGB 9.6 g/dL (11.2-15.7); Immature Grans % 0.5; Lymphocytes % 22.5; MCH 20.1 pg (27.0-33.0); MCHC 27.8 % (32.0-36.0); MPV 9.4 fL (8.0-11.0); Monocytes % 6.2; Neutrophils % 67.6; Platelet Count 471 10^3/uL (130-400); RBC 4.78 10^6/uL (3.93-5.22); RDW 19.3 % (11.7-14.6); RDW-SD 49.1 fL; WBC 6.58 10^3/uL (4.4-10.8)
[2022-11-15 15:57] LABS: Anisocytosis 3+; Diff Comment RBC Morph Reviewed; Hypochromasia 2+; Microcytosis 2+; Poikilocytes 1+
[2022-11-15 16:16] LABS: BUN 13 mg/dL (7-18); CREATININE 0.7 mg/dL (0.55-1.02); Calcium 9.3 mg/dL (8.5-10.1); Chloride 103 mmol/L (98-107); Ferritin 13 ng/mL (8-252); Glucose 115 mg/dL (74-106); Potassium 4.4 mmol/L (3.5-5.1); Sodium 141 mmol/L (136-145); Vitamin B12 590 pg/mL (193-986)
[2022-11-15 16:46] LABS: Iron 231 ug/dL (50-170)
== END 2022-11-15 16:19 | disposition home or self-care (01) ==
LOC: LBN 16:18
PROVIDERS: PCP Family Medicine; Visit Provider Family Medicine
DX: E03.9 Hypothyroidism, unspecified (principal); F33.1 Major depressive disorder, recurrent, moderate; M99.62 Osseous and subluxation stenosis of intervertebral foramina of thoracic region
CPT/HCPCS: 80048; 82607; 82728; 82746; 83540; 85025; 85045

== ENCOUNTER 2023-04-19 14:48 | Outpatient (REF) | payer MEDICARE, BC, SELFPAY ==
[2023-04-19 14:59] LABS: TSH 2.93 uIU/mL (0.36-3.74)
== END 2023-04-19 14:49 | disposition home or self-care (01) ==
LOC: LBN 14:48
PROVIDERS: PCP Family Medicine; Visit Provider Physician Assistant
DX: E03.9 Hypothyroidism, unspecified (principal)
CPT/HCPCS: 84443

== ENCOUNTER 2023-05-03 13:41 | Outpatient (REF) | payer MEDICARE, BC, SELFPAY ==
[2023-05-03 16:55] LABS: ALT 28 U/L (14-59); AST 16 U/L (15-37); Albumin 3.9 g/dL (3.4-5.0); Alkaline Phosphatase 117 U/L (46-116); Anion Gap 10.7 mmol/L (3-11); BUN 22 mg/dL (7-18); Bilirubin, Total 0.4 mg/dL (0.2-1.0); CO2 29.3 mmol/L (21.0-32.0); CREATININE 1.1 mg/dL (0.55-1.02); Calcium 9.3 mg/dL (8.5-10.1); Chloride 99 mmol/L (98-107); Estimated GFR 50.17 (mL/min/1.73m2); Glucose 128 mg/dL (74-106); Potassium 4.3 mmol/L (3.5-5.1); Sodium 139 mmol/L (136-145); Total Protein 7.8 g/dL (6.4-8.2)
== END 2023-05-03 13:42 | disposition home or self-care (01) ==
LOC: LBN 13:41
PROVIDERS: PCP Family Medicine; Visit Provider Physician Assistant
DX: R63.5 Abnormal weight gain (principal); E03.9 Hypothyroidism, unspecified
CPT/HCPCS: 80053

== ENCOUNTER 2023-05-23 18:48 | Outpatient (REF) | payer MEDICARE, BC, SELFPAY ==
[2023-05-23 19:40] LABS: Hemoglobin A1C 5.8 % (<5.7)
== END 2023-05-23 18:49 | disposition home or self-care (01) ==
LOC: LBN 18:48
PROVIDERS: PCP Family Medicine; Visit Provider Physician Assistant
DX: E11.9 Type 2 diabetes mellitus without complications (principal)
CPT/HCPCS: 83036

== ENCOUNTER 2023-06-20 18:44 | Outpatient (REF) | payer MEDICARE, BC, SELFPAY ==
[2023-06-20 17:22] LABS: Vitamin D 25 Total 40.6 ng/mL (30-100)
== END 2023-06-20 18:45 | disposition home or self-care (01) ==
LOC: LBN 18:44
PROVIDERS: PCP Family Medicine; Visit Provider Physician Assistant
DX: M25.541 Pain in joints of right hand (principal)
CPT/HCPCS: 82306; 82607

== ENCOUNTER 2023-07-30 12:39 | Outpatient (REF) | payer MEDICARE, BC, SELFPAY ==
[2023-07-30 15:07] LABS: TSH 2.74 uIU/mL (0.36-3.74)
== END 2023-07-30 12:40 | disposition home or self-care (01) ==
LOC: LBN 12:39
PROVIDERS: PCP Family Medicine; Visit Provider Family Medicine
DX: E03.9 Hypothyroidism, unspecified (principal)
CPT/HCPCS: 84443

== ENCOUNTER 2023-11-14 12:27 | Outpatient (REF) | payer MEDICARE, BC, SELFPAY ==
[2023-11-14 14:46] LABS: COVID-19 PCR Negative (Negative); Influenza A PCR Negative (Negative); Influenza B PCR Negative (Negative); RSV PCR Negative (Negative)
[2023-11-14 14:47] LABS: Source Nasopharynx
== END 2023-11-14 12:28 | disposition home or self-care (01) ==
LOC: LBN 12:27
PROVIDERS: PCP Family Medicine; Visit Provider Family Medicine
DX: J10.1 Influenza due to other identified influenza virus with other respiratory manifestations (principal)
CPT/HCPCS: 87637

== ENCOUNTER 2023-12-03 18:49 | Outpatient (REF) | payer MEDICARE, BC, SELFPAY ==
[2023-12-03 17:42] LABS: Abs Immature Grans 0.02 10^3/uL (0.0-0.06); Absolute Basophil Count 0.07 10^3/uL (0.0-0.2); Absolute Eosinophil Count 0.18 10^3/uL (0.0-0.7); Absolute Lymphocyte Count 2.14 10^3/uL (1.2-3.4); Absolute Monocyte Count 0.64 10^3/uL (0.1-0.8); Absolute Neutrophil Count 5.93 10^3/uL (1.2-6.7); Basophils % 0.8; HGB 12.8 g/dL (11.2-15.7); Immature Grans % 0.2; Lymphocytes % 23.8; MCH 29.3 pg (27.0-33.0); MCHC 32.8 % (32.0-36.0); MCV 89 fL (80-95); MPV 8.9 fL (8.0-11.0); Monocytes % 7.1; Neutrophils % 66.1; Platelet Count 325 10^3/uL (130-400); RBC 4.37 10^6/uL (3.93-5.22); RDW-SD 45.6 fL; WBC 8.98 10^3/uL (4.4-10.8)
[2023-12-03 17:45] LABS: Anion Gap 5.5 mmol/L (3-11); BUN 14 mg/dL (7-18); CO2 32.5 mmol/L (21.0-32.0); CREATININE 0.9 mg/dL (0.55-1.02); Calcium 8.6 mg/dL (8.5-10.1); Chloride 99 mmol/L (98-107); Estimated GFR 63.43 (mL/min/1.73m2); Glucose 108 mg/dL (74-106); Potassium 3.7 mmol/L (3.5-5.1); Sodium 137 mmol/L (136-145)
== END 2023-12-03 18:50 | disposition home or self-care (01) ==
LOC: LBN 18:49
PROVIDERS: PCP Family Medicine; Visit Provider Family Medicine
DX: E11.9 Type 2 diabetes mellitus without complications (principal); E03.9 Hypothyroidism, unspecified; M48.07 Spinal stenosis, lumbosacral region
CPT/HCPCS: 80048; 85025

== ENCOUNTER 2024-01-13 10:51 | Outpatient (CLI) | payer MEDICARE, BC, SELFPAY ==
--- NOTE | 2024-01-13 10:56 | RT.EKG_ITS ---
APPROVED REPORT Exam: Resting ECG Reason for Exam: Chest Discomfort Patient Location: O HR:73 bpm ECG Measurements Heart Rate 73 AXIS LA 178 P 85 QRSd 90 QRS 43 QT 374 T 12 QTc 413 Conclusion Sinus rhythm...normal P axis, V-rate 50- 99 Low voltage, precordial leads...precordial leads <1.0mV Otherwise normal ECG
== END 2024-01-13 10:52 | disposition home or self-care (01) ==
PROVIDERS: PCP Family Medicine; Visit Provider Family Medicine
DX: R07.9 Chest pain, unspecified (principal)
CPT/HCPCS: 93005; 93010

== ENCOUNTER 2024-04-28 17:38 | Outpatient (REF) | payer MEDICARE, BC, SELFPAY ==
[2024-04-28 18:01] LABS: Anion Gap 9.9 mmol/L (3-11); BUN 17 mg/dL (7-18); CO2 30.1 mmol/L (21.0-32.0); Calcium 9.5 mg/dL (8.5-10.1); Chloride 101 mmol/L (98-107); Glucose 139 mg/dL (74-106); Potassium 3.9 mmol/L (3.5-5.1); Sodium 141 mmol/L (136-145)
== END 2024-04-28 17:39 | disposition home or self-care (01) ==
LOC: LBN 17:38
PROVIDERS: PCP Family Medicine; Visit Provider Nurse Practitioner Family
DX: E03.9 Hypothyroidism, unspecified (principal); J44.9 Chronic obstructive pulmonary disease, unspecified
CPT/HCPCS: 80048; 84443

== ENCOUNTER 2025-04-15 15:41 | Outpatient (REF) | payer MEDICARE, BC, SELFPAY ==
[2025-04-15 13:16] LABS: Abs Immature Grans 0.03 10^3/uL (0.0-0.06); Absolute Basophil Count 0.05 10^3/uL (0.0-0.2); Absolute Eosinophil Count 0.09 10^3/uL (0.0-0.7); Absolute Lymphocyte Count 1.32 10^3/uL (1.2-3.4); Absolute Neutrophil Count 6.04 10^3/uL (1.2-6.7); Basophils % 0.6 %; Eosinophils % 1.1 %; HCT 42.1 % (36.0-46.0); HGB 13.4 g/dL (11.2-15.7); Immature Grans % 0.4 %; Lymphocytes % 16.4 %; MCHC 31.8 % (32.0-36.0); MCV 88 fL (80-95); MPV 9.1 fL (8.0-11.0); Monocytes % 6.2 %; Neutrophils % 75.3 %; Platelet Count 349 10^3/uL (130-400); RBC 4.79 10^6/uL (3.93-5.22); RDW 14.7 % (11.7-14.6); WBC 8.03 10^3/uL (4.4-10.8)
[2025-04-15 13:54] LABS: ALT 14 U/L (14-59); AST 14 U/L (15-37); Albumin 3.7 g/dL (3.4-5.0); Alkaline Phosphatase 95 U/L (46-116); Anion Gap 5.9 mmol/L (3-11); BUN 13 mg/dL (7-18); Bilirubin, Total 0.4 mg/dL (0.2-1.0); CO2 32.1 mmol/L (21.0-32.0); CREATININE 0.8 mg/dL (0.55-1.02); Calcium 9.4 mg/dL (8.5-10.1); Chloride 99 mmol/L (98-107); Estimated GFR 72.61 (mL/min/1.73m2); Glucose 122 mg/dL (74-106); Potassium 3.7 mmol/L (3.5-5.1); Sodium 137 mmol/L (136-145); TSH 2.32 uIU/mL (0.36-3.74); Total Protein 7.2 g/dL (6.4-8.2); Vitamin D 25 Total 34 ng/mL (30-100)
== END 2025-04-15 15:42 | disposition home or self-care (01) ==
LOC: LBN 15:41
PROVIDERS: Visit Provider Family Medicine
DX: R19.8 Other specified symptoms and signs involving the digestive system and abdomen (principal)
CPT/HCPCS: 80053; 82306; 84443; 85025

== ENCOUNTER 2025-05-31 10:41 | Outpatient (REF) | payer MEDICARE, BC, SELFPAY ==
[2025-05-31 10:57] LABS: Abs Immature Grans 0.03 10^3/uL (0.0-0.06); HCT 45.9 % (36.0-46.0); HGB 14.2 g/dL (11.2-15.7); Immature Grans % 0.3 %; MCH 27.0 pg (27.0-33.0); MCHC 30.9 % (32.0-36.0); MCV 87 fL (80-95); MPV 9.0 fL (8.0-11.0); Platelet Count 328 10^3/uL (130-400); RBC 5.25 10^6/uL (3.93-5.22); RDW 15.0 % (11.7-14.6); RDW-SD 48.2 fL; WBC 11.78 10^3/uL (4.4-10.8)
[2025-05-31 11:02] LABS: Anion Gap 7.3 mmol/L (3-11); BUN 10 mg/dL (7-18); CO2 31.7 mmol/L (21.0-32.0); Calcium 9.4 mg/dL (8.5-10.1); Chloride 102 mmol/L (98-107); Estimated GFR 85.23 (mL/min/1.73m2); Glucose 138 mg/dL (74-106); Potassium 3.7 mmol/L (3.5-5.1); Sodium 141 mmol/L (136-145)
== END 2025-05-31 10:42 | disposition home or self-care (01) ==
LOC: LBN 10:41
PROVIDERS: Visit Provider Nurse Practitioner Adult Health
DX: J44.9 Chronic obstructive pulmonary disease, unspecified (principal)
CPT/HCPCS: 80048; 85025

== ENCOUNTER 2025-06-07 15:55 | Outpatient (REF) | payer MEDICARE, BC, SELFPAY ==
[2025-06-07 13:40] LABS: Abs Immature Grans 0.02 10^3/uL (0.0-0.06); HCT 42.1 % (36.0-46.0); HGB 13.3 g/dL (11.2-15.7); Immature Grans % 0.3 %; MCH 27.2 pg (27.0-33.0); MCHC 31.6 % (32.0-36.0); MCV 86 fL (80-95); MPV 9.1 fL (8.0-11.0); Platelet Count 291 10^3/uL (130-400); RBC 4.89 10^6/uL (3.93-5.22); RDW 14.9 % (11.7-14.6); RDW-SD 47.2 fL; WBC 7.20 10^3/uL (4.4-10.8)
[2025-06-07 13:47] LABS: Anion Gap 9.1 mmol/L (3-11); BUN 13 mg/dL (7-18); CO2 30.9 mmol/L (21.0-32.0); Calcium 9.4 mg/dL (8.5-10.1); Chloride 100 mmol/L (98-107); Estimated GFR 72.61 (mL/min/1.73m2); Glucose 122 mg/dL (74-106); Potassium 3.8 mmol/L (3.5-5.1); Sodium 140 mmol/L (136-145)
== END 2025-06-07 15:56 | disposition home or self-care (01) ==
LOC: LBN 15:55
PROVIDERS: Visit Provider Nurse Practitioner Adult Health
DX: J18.9 Pneumonia, unspecified organism (principal)
CPT/HCPCS: 80048; 85025

== ENCOUNTER 2025-07-01 00:26 | Outpatient (CLI) | payer MEDICARE, BC, SELFPAY ==
--- NOTE | 2025-07-01 | DI.MAMMO_ITS ---
Exam(s) MG MAMMO SCREENING 60 MIN DUR EXAM: MG MAMMO SCREENING 60 MIN DUR CLINICAL HISTORY: SCREENING MAMMO Z12.31. TECHNIQUE: Bilateral full field digital CC and MLO mammographic images were obtained with 3D tomosynthesis and utilizing computer aided detection (CAD). COMPARISON: Prior outside 2006 mammogram were reviewed. FINDINGS: There has been no significant change in the appearance and distribution of the fibroglandular tissue. There are no new spiculated masses nor new malignant appearing microcalcification groups. Some vascular calcifications noted There is no significant architectural distortion nor skin thickening-retraction. IMPRESSION: No radiographic evidence of malignancy. BI-RADS Category 1 - Negative Breast Density - Category B - There are scattered areas of fibroglandular density. Breast density Category C or D implies that the patient has dense breast tissue. Dense breast tissue can make it harder to find cancer on a mammogram. Dense breast tissue is also associated with an increased risk of breast cancer. This information about the result of the mammogram report was provided to the patient to raise their awareness. Use this report when you speak with the patient about their risks for breast cancer, which includes their family history. At that time, you may recommend additional screening tests (Ultrasound or MRI) as these tests may add significant information. A negative radiographic report should not delay biopsy if a dominant or clinically suspicious mass is present. Up to ten percent of cancers are not identified on mammography. A negative report may reinforce clinical impression. Adenosis and dense breasts may obscure an underlying neoplasm. False positive reports average 6 to 10%. Patient will receive a letter notifying them of these results.
== END 2025-07-01 00:46 ==
LOC: DI 00:26
PROVIDERS: Visit Provider Family Medicine
DX: Z12.31 Encounter for screening mammogram for malignant neoplasm of breast (principal); R92.323 Mammographic fibroglandular density, bilateral breasts
CPT/HCPCS: 77063; 77067

== ENCOUNTER → 2025-09-14 11:08 | Outpatient (BNVA) | payer MEDICARE, BC, MEDICAID, SELFPAY | PROVIDERS: Referring Provider Nurse Practitioner Adult Health; Visit Provider Student in an Organized Health Care Education/Training Program | DX: K64.8 Other hemorrhoids (principal); K64.1 Second degree hemorrhoids | CPT/HCPCS: 99203 ==

== ENCOUNTER 2025-09-24 11:12 | Day surgery (SDC) | payer MEDICARE, BC, MEDICAID, SELFPAY ==
[2025-09-24 11:50] VITALS: BP 160/78; PULSE 85; RESP 18; TEMP 36.4; O2SAT 96
[2025-09-24] MEDS: Lactated Ringers 1,000 ML 80 ML IV (13:15)
--- NOTE | 2025-09-24 14:06 | W.ANESPRE ---
General Info Date of Service Date Performed: 09/24/25 Height: 4 ft 9.5 in Weight: 81.1 kg Body Mass Index (BMI): 38.0 Surgical Procedure: Operation Date: 09/24/25 13:10 Proposed Procedure Side Surgeon p Hemorrhoid Banding Becca Raymundo MD Meds Allergies and Home Medications Allergies Allergy/AdvReac Type Severity Reaction Status Date / Time capsaicin AdvReac Unknown Unknown Verified 09/24/25 12:14 codeine AdvReac Unknown Unknown Verified 09/24/25 12:14 erythromycin base AdvReac Unknown Unknown Verified 09/24/25 12:14 gluten AdvReac Unknown Unknown Verified 09/24/25 12:14 meperidine (From Demerol) AdvReac Unknown Unknown Verified 09/24/25 12:14 morphine AdvReac Unknown Unknown Verified 09/24/25 12:14 nalbuphine (From Nubain) AdvReac Unknown Unknown Verified 09/24/25 12:14 neomycin AdvReac Unknown Unknown Verified 09/24/25 12:14 Penicillins AdvReac Unknown Unknown Verified 09/24/25 12:14 Home Medication Medication Instructions Recorded Amicare Arnica Cream 1 applic topical BID 03/25/22 Lactobacillus rhamnosus GG 10 1 cap PO BID 03/25/22 billion cell capsule (Culturelle) acetaminophen 500 mg tablet 1,000 mg PO Q8H 03/25/22 ascorbic acid (vitamin C) 500 mg 500 mg PO DAILY 03/25/22 tablet (Vitamin C) buspirone 5 mg tablet 5 mg PO BID 03/25/22 cholecalciferol (vitamin D3) 25 50 mcg PO QAM 03/25/22 mcg (1,000 unit) tablet coenzyme Q10 100 mg capsule 100 mg PO QAM 03/25/22 Held on 09/24/25. Instructions: Pt Stopped/Never Started diltiazem HCl 180 mg 360 mg PO QAM 03/25/22 capsule,extended release 24 hr duloxetine 60 mg capsule,delayed 60 mg PO BID 03/25/22 release (Cymbalta) fluticasone propionate 50 2 spray intranasal DAILY 03/25/22 mcg/actuation nasal spray,suspension gabapentin 300 mg capsule 300 mg PO TID 03/25/22 levothyroxine 137 mcg tablet 137 mcg PO QAM 03/25/22 losartan 100 mg tablet 100 mg PO QAM 03/25/22 omeprazole 40 mg capsule,delayed 20 mg PO BID 03/25/22 release oxycodone 5 mg tablet 5 mg PO Q6H 03/25/22 diclofenac sodium 1 % topical gel 2 g topical QID 03/25/23 (Voltaren Arthritis Pain) loratadine 10 mg tablet (Claritin) 10 mg PO DAILY 03/25/23 guaifenesin 600 mg tablet, 600 mg PO BID 08/05/24 extended release 12 hr (Mucinex) Ocusoft Eyelid Cleansing Pads topical HS 09/24/25 fexofenadine 180 mg tablet 180 mg PO DAILY 09/24/25 (Tiffany Allergy) folic acid 1 mg tablet 1 mg PO DAILY 09/24/25 Current Visit Medications: Current Medications Generic Name Dose Route Start Last Admin Trade Name Freq PRN Reason Stop Dose Admin Ringer's Solution 1,000 mls @ 80 mls/hr 09/24/25 06:00 09/24/25 13:15 IV 09/24/25 23:59 80 mls/hr INFUSION SERGEY Administration IV Miscellaneous Supplies 1 each 09/24/25 06:00 Iv Access IV 09/24/25 23:59 DIRECTED SERGEY Sodium Chloride 0 ml 09/24/25 06:00 Normal Saline Flush 10 Ml Syr IV 09/24/25 23:59 PRN PRN Sodium Chloride 0 ml 09/24/25 06:00 Normal Saline 10 Ml Vial IJ 09/24/25 23:59 DIRECTED PRN Sterile Water 0 ml 09/24/25 06:00 Water,Injection,Sterile 10 Ml Vial IJ 09/24/25 23:59 DIRECTED PRN PFSH Active Problems Active Problems: Problem Status Onset Code Chronic cough Acute R05.3 Bilateral sensorineural hearing loss Acute H90.3 Viral illness Acute B34.9 Hoarseness Acute R49.0 Acute sinusitis Acute J01.90 Sensorineural hearing loss Acute H90.5 Eczematoid otitis externa of both ears Acute H60.543 Ear lesion Acute H93.90 Ear itch Acute L29.9 Medical History Medical History Anxiety Chronic back pain Depression GERD (gastroesophageal reflux disease) HTN (hypertension) Hypothyroidism Migraine Spinal stenosis Surgical History Surgical History Hx of bilateral hip replacements Tobacco Smoking/Tobacco Use Status: Never Alcohol Alcohol Intake: never Substance Use Substance use type: does not use Vital Signs and Lab Results Vital Signs Most Recent Vital Signs in EMR: Most Recent Vital Signs Temp Pulse Resp BP Pulse Ox 36.4 C L 85 18 160/78 H 96 09/24/25 11:50 09/24/25 11:50 09/24/25 11:50 09/24/25 11:50 09/24/25 11:50 Anesthesia Assessment and Plan Anesthesia History Personal History: No History of General Anesthesia Family History: Family History Unknown Exercise Tolerance Exercise Tolerance: Metabolic Equivalents>4 Pertinent Negatives Pertinent Negatives: No Symptoms of GERD Cardiac & Pulmonary Exam Cardiac Exam: Normal S1/S2 Heart Sounds Pulmonary Exam: Clear Bilateral Breath Sounds Implantable Cardiac Device Does patient have a Pacemaker or an ICD?: No Airway Exam Known Difficult Airway: No Mallampati Class: 2 Mouth Opening: Normal (> 3cm) Thyromental Distance: Greater than 3 cm Neck Range of Motion: Full ROM Neck Circumference: Normal Teeth Condition: Normal Dentition ASA Classification ASA Score: ASA 3 Emergency Case?: No NPO Status NPO Status: NPO Clears >2 hours, Solids >8 hours Anesthesia Plan Resuscitation Status: Full Code Anesthesia Technique: MAC Anesthesia Airway Planned: Natural Airway Monitors Used: Standard Monitors
[2025-09-24 14:07] VITALS: BMI 38.0
--- NOTE | 2025-09-24 14:27 | PDOC.DSDIS_ITS ---
Date of service: 09/24/25 Discharge Plan Disposition Patient Disposition: Home Condition: Good Discharge Details Reason For Visit: Internal hemorrhoids Attending Provider: Becca Raymundo Primary Care Provider: David Meier Home Meds and New Rx's Prescriptions: Continued loratadine [Claritin] 10 mg tablet 10 mg PO DAILY diclofenac sodium [Voltaren Arthritis Pain] 1 % gel 2 g topical QID Rx Instructions: apply to single elbow, wrist or hand; for hand includes palm/fingers/back of hand guaifenesin [Mucinex] 600 mg tablet extended release 12hr 600 mg PO BID cholecalciferol (vitamin D3) 25 mcg (1,000 unit) Tablet 50 mcg PO QAM coenzyme Q10 100 mg Capsule 100 mg PO QAM diltiazem HCl 180 mg Capsule,Extended Release 24hr 360 mg PO QAM levothyroxine 137 mcg Tablet 137 mcg PO QAM ascorbic acid (vitamin C) [Vitamin C] 500 mg Tablet 500 mg PO DAILY [facility] Cream 1 applic topical BID buspirone 5 mg Tablet 5 mg PO BID Culturelle 10 billion cell Capsule 1 cap PO BID duloxetine [Cymbalta] 60 mg Capsule,Delayed Release(Dr/Ec) 60 mg PO BID omeprazole 40 mg Capsule,Delayed Release(Dr/Ec) 20 mg PO BID gabapentin 300 mg Capsule 300 mg PO TID oxycodone 5 mg Tablet 5 mg PO Q6H acetaminophen 500 mg Tablet 1,000 mg PO Q8H fluticasone propionate 50 mcg/actuation [place],Suspension 2 spray INTRANASAL DAILY fexofenadine [Tiffany Allergy] 180 mg tablet 180 mg PO DAILY folic acid 1 mg tablet 1 mg PO DAILY [employer] Eyelid Cleansing Pads topical HS No Action losartan 100 mg Tablet 100 mg PO QAM Discharge Instructions Instructions: Hemorrhoid Banding Additional Instructions: Your procedure went well today and the internal hemorrhoid was banded. You may have some bleeding following the procedure as well as in 4-7 days when the tissue sloughs off. You may shower and return to normal activity. You should not need any additional medication for pain control. Avoid constipation and straining following the procedure. If you have increased bleeding, fevers, chills, or inability to urinate please contact the surgery office immediately. Stand Alone Forms: Portal Information Activity:: Activity as Tolerated Diet:: As Tolerated Discharge Orders Discharge Orders: Discharge Order (Routine); Ordered 09/24/25 Ordered By: Becca Raymundo
[2025-09-24 14:31] VITALS: BP 141/74; PULSE 73; RESP 18; TEMP 36; O2SAT 94
--- NOTE | 2025-09-24 14:32 | W.PM.OP ---
Operative Note Operative Note PRE-OP DIAGNOSIS: Internal hemorrhoids POST-OP DIAGNOSIS: same PROCEDURE: Hemorrhoid banding SURGEON: Becca Raymundo ANESTHESIA TYPE: MAC Refer to Anesthesia Record ESTIMATED BLOOD LOSS: 1 PATHOLOGY: none sent COMPLICATIONS: None Patient was transported to: PACU Patient's condition: stable Indications: Patient is an 84-year-old female who presented to the clinic for evaluation of hemorrhoids. She has had ongoing hemorrhoidal bleeding despite topical treatment. On exam in the office she had evidence of a single column of internal hemorrhoids amenable to banding. Hemorrhoidal banding was discussed with her as well as the risks and benefits and consent was obtained prior to the procedure. Findings: Anoscopy performed with evidence of grade 2 right posterior internal hemorrhoid. No additional internal hemorrhoids present that would be amenable to banding. Procedure Description: The patient was brought to the operating room and placed in the left lateral position. Anesthesia was initiated. After digital examination an anoscope was inserted to visualize the hemorrhoids. There was evidence of a single column of internal hemorrhoids that was amenable to banding. No additional internal hemorrhoids were present. Prior to deploying the band it was confirmed with the patient that there was no increased pain in the area. Then a rubber band was placed at the base of the internal hemorrhoid using Galvez applicator. The patient tolerated the procedure well and was transferred to PACU in stable condition. Date of Procedure: 09/24/25
--- NOTE | 2025-09-24 14:38 | W.ANESPOSTOP ---
Postoperative Evaluation Date, Time and Location Date Performed: 09/24/25 Time Performed: 14:38 Patient Location: Day Surgery Unit Vital Signs Most Recent Imported Vital Signs: Most Recent Vital Signs Temp Pulse Resp BP Pulse Ox 36.0 C L 73 18 141/74 H 94 09/24/25 14:31 09/24/25 14:31 09/24/25 14:31 09/24/25 14:31 09/24/25 14:31 Assessment Mental Status: Awake (Alert & Oriented to Patient Baseline) Airway and Respiratory Function: Patent airway with normal (patient baseline) respiratory exam Cardiovascular Function: Hemodynamically Stable Hydration Status: Adequately Hydrated Nausea & Vomiting: No Nausea or Vomiting Pain: Pt. Denies Any Pain Peripheral Nerve Block: Patient did not receive a nerve block
[2025-09-24 14:54] VITALS: BP 150/86; PULSE 70; RESP 16; TEMP 36.4; O2SAT 95
== END 2025-09-24 15:47 | disposition home or self-care (01) ==
PROVIDERS: PCP Family Medicine; Visit Provider Student in an Organized Health Care Education/Training Program
PROC: (CPT 46221; principal; 2025-09-24 13:00)
DX: K64.8 Other hemorrhoids (principal)
CPT/HCPCS: 46221; J2003; J2704

== ENCOUNTER 2025-10-18 13:51 | Outpatient (REF) | payer MEDICARE, BC, MEDICAID, SELFPAY ==
[2025-10-18 12:10] LABS: TSH 1.31 uIU/mL (0.55-4.78)
== END 2025-10-18 13:52 | disposition home or self-care (01) ==
LOC: LBN 13:51
PROVIDERS: PCP Family Medicine; Visit Provider Nurse Practitioner Adult Health
DX: E03.9 Hypothyroidism, unspecified (principal)
CPT/HCPCS: 84443